=== PATIENT | female | born 1995 | race Caucasian/White ===

== ENCOUNTER 2024-05-07 21:55 | Emergency (ER) | payer SELFPAY ==
--- NOTE | 2024-05-07 22:12 | PC.NURSE ---
no answer in lobby when called for vital signs
--- NOTE | 2024-05-07 22:29 | PC.NURSE ---
no answer in lobby when called for vital signs
--- NOTE | 2024-05-07 22:49 | PC.NURSE ---
NO ANSWER FOR MAIN ED
== END 2024-05-07 22:52 | disposition left against medical advice (07) ==
LOC: SERX 23:44
PROVIDERS: Emergency Provider Emergency Medicine
DX: Z53.21 Procedure and treatment not carried out due to patient leaving prior to being seen by health care provider (principal)

== ENCOUNTER → 2024-05-20 | Outpatient (CLI) | payer BC, SELFPAY ==
--- NOTE | 2024-05-20 13:30 | XR_ITS ---
Examination: Pelvic ultrasound, transabdominal, complete Technique: Transabdominal ultrasound of the pelvis performed using grayscale imaging Date and time of exam: May 20 2024 1431 hours INDICATIONS: Pelvic pain and heavy vaginal bleeding 3 months FINDINGS: Uterus 8.6 x 3.6 x 6.2 cm Endometrial stripe 21 mm No uterine mass or intrauterine gestation Right ovary 3.4 cm arterial flow Left ovary 4.1 cm arterial flow Mild fluid in the cul-de-sac IMPRESSION: Mildly prominent left ovary 4.1 x 2.5 x 3.8 cm, recommend six-month pelvic sonography follow-up
--- NOTE | 2024-05-20 13:30 | XR_ITS ---
Examination: Transvaginal ultrasound of the pelvis, complete Technique: Transvaginal sonographic images pelvis performed using godinez scale imaging Exam date and time: May 20, 2024 1442 hours INDICATIONS: Pelvic pain and irregular heavy vaginal bleeding 3 months FINDINGS: Uterus 9.2 x 3.9 x 5.3 cm Anterior uterine body area of fibroid degeneration 11 x 10 mm posterior uterine body area of fibroid degeneration 10 x 10 mm Endometrial stripe 14 mm Right ovary 2.7 x 2.2 x 2.1 cm arterial flow Left ovary 3.9 x 2.2 x 3.0 cm arterial flow small follicles IMPRESSION: Small areas of uterine fibroid degeneration as above Mildly prominent left ovary, recommend 3-6 month follow-up pelvic sonography.
== END | disposition home or self-care (01) ==
PROVIDERS: PCP Physician Assistant; Referring Provider Physician Assistant; Visit Provider Physician Assistant
DX: D25.9 Leiomyoma of uterus, unspecified (principal); N83.8 Other noninflammatory disorders of ovary, fallopian tube and broad ligament
CPT/HCPCS: 76830; 76856

== ENCOUNTER 2024-07-01 14:54 | Outpatient (AMB) | payer BC, MEDICAID, SELFPAY ==
[2024-07-01 15:11] VITALS: BP 135/76; PULSE 80; RESP 16; TEMP 35.7; O2SAT 98; BMI 32.8
--- NOTE | 2024-07-01 15:11 | OBCLNT_ITS ---
Vital Signs 07/01/24 15:11 Height 1.7 m Height Method Stated Weight 95.254 kg Weight Measurement Method Standing Scale BMI 32.8 BP 135/76 H Blood Pressure Source Automatic Cuff Blood Pressure Location Left Upper Arm Position Sitting Respiration 16 Pulse 80 Pulse Source Monitor Temp 96.3 F L Temp Source Oral Pulse Oximetry (%) 98 Oxygen Delivery Method Room Air Allergies/Home Meds Allergies & Medications Allergies No Known Allergies Allergy (Verified 07/01/24 15:13) Medication Reconciliation No Known Home Medications 07/01/24 [History Confirmed 07/01/24] Intake Visit Data Collection New Patient or Established: Established Patient (seen at [facility] within 3 years) Reason for Visit:: Initial OB Visit Seen by Clinical Staff ONLY (RN/MA): No Coal 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 1. Little interest or pleasure in doing things: not at all 2. Feeling down, depressed, or hopeless: not at all Total score: 0 Depression screen completed yes Social History Living Situation History Marital Status: Lives With: Family Housing: House Housing Other:: Works at [employer]. Spouse is a dural mechanic. 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: Yes Past Medical History Past Medical History Have you ever been diagnosed with any of the following: Neurological Problems Seizures: No Epilepsy: No Migraine: No Cardiology Problems Cardiac Arrhythmia: No Heart Murmur: No Respiratory Problems Asthma: No Pulmonary Embolism: No Sleep Apnea: No Stomache/Intestinal Problems Celiac Disease: No Gall Bladder Disease: Yes (Status post laparoscopic cholecystectomy 2020) Irritable Bowel: No Obesity: Yes (Was on Zepbound before . Went from 250 pounds down to 188 pounds.) Genital/Urinary Problems Renal Disease: No Reproductive Problems Endometriosis: No Fibroids: Yes (Small fibroids) Genital Herpes: No Gonorrhea: No Pelvic Inflammatory Disease: No Polycystic Ovarian Syndrome: No Previous Pregnancies: Yes (Status post vaginal delivery in 2020 Dr. Del Castillo) Musculoskeletal Problems Arthritis: No Rheumatoid Arthritis: No Scoliosis: No Fibromyalgia: No Head,Eye,Nose,Throat Problems Glaucoma: No Endocrine Problems Diabetes Mellitus Type 2: No Hyperthyroidism: No Hypothyroidism: No Systemic Lupus Erythematosus: No Blood Problems Anemia: No Psychologic Problems Recreational Drug Use: Yes (History of marijuana use prior to ) Depression: No Anxiety: No Other Problems Hospitalization: Yes (For lap choley and vaginal delivery x 1) Blood Transfusions: No Anesthesia Reactions: No Surgical History Bariatric Surgery: No Cholecystectomy: Yes (Laparoscopic in 2020) History of Present Illness HPI Narrative Patient is a 29-year-old -0-1-1 presents for a new OB appointment. She has no complaints. No bleeding and no contractions. She was told in the past by a PA on a transvaginal ultrasound she is 1 cm fibroid. Patient had a vaginal delivery in 2020 at 37 weeks baby weighed 6 pound. She was induced 3 weeks early for elevated blood pressure. Her daughter Shobha was born weighing [address] Del Castillo delivered her. Per patient she had a vacuum delivery. She did have an epidural. She states her blood type is O-. OB Initial Visit Menstrual History Menstrual reliability: definite Flow: normal Menstrual regularity: regular Monthly: Yes Age at menarche: 13 On control pills at conception: No Date of positive home test: 06/03/24 Associated symptoms (LMP): Reports fatigue and breast tenderness OB History : 3 Para: 1 Hx Total # of Abortions (Spontaneous & Elective): 1 # of Living Children: 1 Delivery History 1st : Child's name: SHOBHA date: 12/11/20 sex: female Gestational age at delivery (weeks): 37 Delivery type: vaginal weight (lbs): 2721.554 g Delivery complications: IOL for HTN at 37 weeks, vacuum delivery. Had epidural. History of depression before or after : No Additional comments: Blood type O- per patient. False positive NIPT last time followed at [facility] Infection History & Risk Evaluation History of STDs: none HIV risk evaluation: low risk Hepatitis B risk evaluation: low risk Patient or partner has history of Genital Herpes: No Varicella/chicken pox status: immunized Genetic Screening & History Genetic Screening/Teratology Counseling - Includes patient, baby's father, or anyone in either family with: 1. Patient's age 35 years or older as of estimated date of delivery: No 2. Thalassemia (Malay, Lithuanian, Mediterranean, or Background); MCV less than 80: No 3. Neural Tube Defect (Meningomyelocele, Spina Bifida, or Anencephaly): No 4. Congenital Heart Defect: No 5. Down Syndrome: No 6. Andres-Sachs (Ashkenazi Advent, Cajun, Vietnamese Addison): No 7. Kirby Disease (Ashkenazi Advent): No 8. Familial Dysautonomia (Ashkenazi Advent): No 9. Sickle Cell Disease or Trait (): No 10. Hemophilia or other blood disorders: No 11. Muscular Dystrophy: No 12. Cystic Fibrosis: No 13. [place]'s Chorea: No 14. Mental Retardation/Autism: No 15. Other inherited genetic or chromosomal disorder: No 16. Maternal Metabolic Disorder (EG,TYPE 1 Diabetes, PKU): No 17. Patient or baby's father had a child with defects not listed above: No 18. Recurrent loss or a stillbirth: No 19. Medications (including supplements, vitamins, herbs or otc drugs)/illicit/recreational drugs/alcohol since last menstrual period: No 20. Any other: No Infection History 1. Live with someone with TB or exposed to TB: No 2. Rash or viral illness since last menstrual period: No 3. Hepatitis B,C: No Other (see comments) Source: [employer] OB Flowsheet OB Flowsheet Initial Weight: Not Recorded Date -?-?-?-?-?-?-?-?-?-?-?-?- EGA Weight Edema CTX Effacement BP Fundal ht Pres Dilation Effacement Station Visit Note Alb Glu FHR Mov 07/01/24 -?-?-?-?-?-?-?-?-?-?-?-?- 8w 4d 95.254 kg 135/76 135 Review of Systems Review of Systems Narrative Review of Systems: Patient reports fatigue and breast tenderness no severe nausea and vomiting no bleeding. Systems Reviewed: All systems reviewed, normal except as documented Constitutional Constitutional: Reports fatigue Endocrine Endocrine: Reports fatigue Exam General General Appearance: alert, in no apparent distress, comfortable, cooperative and well groomed Neck Neck exam: Present normal inspection, full ROM and trachea midline Chest Chest inspection: Present normal inspection and symmetric chest wall rise Resp Respiratory exam: Present normal lung sounds bilaterally Card Cardiovascular exam: Present regular rate, normal rhythm and normal heart sounds Abdominal Abdominal exam: Present soft and normal bowel sounds Extremities Extremities exam: Present normal inspection and full ROM Psych Psychiatric exam: Present normal affect and normal mood Skin Skin exam: Present warm, dry, intact and normal color Assessment & Plan Diagnosis / Problem List (1) : Status: Acute Qualifiers: Weeks of gestation: 8 weeks Qualified Code(s): Z3A.08 - 8 weeks gestation of Additional Plan Follow Up: 4 Weeks Office Procedures OB Clinic LOC & Office Proc's Nursing/Assessment Patient Status: Established Patient OB Clinic Nursing Assessment: BP Monitoring, Medication Reconciliation, Update PMH in EMR and Vital Signs OB Clinic Coordination of Care: Consent,records obtained, informed consent, Education Simp Pt/Fam, Lab and Imaging orders and Staff clarify orders Special Needs: Heart tones Established Patient Charge Established Patient Point Assignment: 120 Established Patient Point Charge: EP Level 4 (120-155) Bedside Ultrasounds US Transvaginal at bedside: Yes OB Ultrasound Indication Indication: Size, dates, viability OB Ultrasound Ultrasound technique: transvaginal Gestational sac assessment: Presence, location, size, shape: Intrauterine with a crown-rump length of 1.99 cm. Corresponding gestational age of 8 weeks 4 days. Embryo/ Assessment 1: Cardiac activity confirmation: Yes
== END 2024-07-01 15:54 | disposition home or self-care (01) ==
LOC: HODSOBC 14:54
PROVIDERS: Supervising Provider Obstetrics & Gynecology; Visit Provider Obstetrics & Gynecology
DX: Z34.81 Encounter for supervision of other normal pregnancy, first trimester (principal); Z3A.08 8 weeks gestation of pregnancy
CPT/HCPCS: 76817; 99214; G0463

== ENCOUNTER → 2024-07-01 | Outpatient (CLI) | payer BC, SELFPAY ==
[2024-07-01 18:23] LABS: HCG Qualitative,Urine Positive
[2024-07-01 18:24] LABS: Hepatitis B Surface Antigen Non Reactive (Non React); Rubella, IgG Antibody Reactive (Immune)
[2024-07-01 18:28] LABS: Syphilis Nonreactive (Nonreactive)
[2024-07-01 18:35] LABS: HIV (1&2) Antibody Rapid Non-Reactive
== END | disposition home or self-care (01) ==
PROVIDERS: PCP Physician Assistant; Referring Provider Obstetrics & Gynecology; Visit Provider Obstetrics & Gynecology
DX: Z34.90 Encounter for supervision of normal pregnancy, unspecified, unspecified trimester (principal)
CPT/HCPCS: 36415; 81025; 86703; 86762; 86780; 86850; 86900; 86901; 87340

== ENCOUNTER 2024-08-06 08:31 | Outpatient (AMB) | payer BC, MEDICAID, SELFPAY ==
[2024-08-06 08:42] VITALS: BP 132/78; PULSE 98; RESP 18; TEMP 36.2; O2SAT 98; BMI 33.5
--- NOTE | 2024-08-06 08:42 | OBCLNT_ITS ---
Vital Signs 08/06/24 08:42 Height 1.7 m Height Method Stated Weight 97.125 kg Weight Measurement Method Standing Scale BMI 33.5 BP 132/78 H Blood Pressure Source Automatic Cuff Blood Pressure Location Left Upper Arm Position Sitting Respiration 18 Pulse 98 Pulse Source Monitor Temp 97.2 F Temp Source Oral Pulse Oximetry (%) 98 Oxygen Delivery Method Room Air Allergies/Home Meds Allergies & Medications Allergies No Known Allergies Allergy (Verified 08/06/24 08:44) Medication Reconciliation No Known Home Medications 07/01/24 [History Confirmed 08/06/24] Intake Visit Data Collection New Patient or Established: Established Patient (seen at [facility] within 3 years) Reason for Visit:: 13 week OB visit Seen by Clinical Staff ONLY (RN/MA): No Sprinkler Repair Technician Required: No Do You Feel Safe at Home: Yes Authorities Contacted: N/A PCP or OBGYN visit in last 3 months: Yes Date of Last PCP or OBGYN visit: 07/01/24 Hx Now: Yes Are you currently on any form of Control: No Pain Present Currently: No Pain Scale Used: Hahn-Magana/Numerical Pain scale:: 0 Smoking Status Smoking Status: Former smoker Questionnaires Covid-19 Vaccine Questionnaire Has patient been vacinated for Covid-19 Have you been vacinated for Covid-19: Yes PHQ-9 PHQ-2 Over the last 2 weeks, how often have you been bothered by any of the following problems? 1. Little interest or pleasure in doing things: not at all 2. Feeling down, depressed, or hopeless: not at all Total score: 0 PHQ-9 3. Trouble falling or staying asleep, or sleeping too much: Not at all 4. Feeling tired or having little energy: Not at all 5. Poor appetite or overeating: Not at all 6. Feeling bad about yourself - or that you are a failure or have let yourself or your family down: Not at all 7. Trouble concentrating on things, such as reading the newspaper or watching television: Not at all 8. Moving or speaking so slowly that other people could have noticed? - Or the opposite - being so fidgety or restless that you have been moving around a lot more than usual: not at all 9. Thoughts that you would be better off or of hurting yourself in some way: Not at all Total score: 0 If you checked off any problems, how difficult have these problems made it for you to do your work, take care of things at home, or get along with other people?: not difficult at all Source: Developed by Drs. Gurjit Bennett, Lis Arvizu, Armaan De Souza and colleagues, with an educational korey from [employer]. Depression screen completed yes Social History Living Situation History Marital Status: Lives With: Family Housing: House Housing Other:: Works at [employer]. Spouse is a supervisor mechanic boilermaking. 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: Yes Past Medical History Past Medical History Have you ever been diagnosed with any of the following: Neurological Problems Seizures: No Epilepsy: No Migraine: No Cardiology Problems Cardiac Arrhythmia: No Heart Murmur: No Congestive Heart Failure: No Respiratory Problems Chronic Obstructive Pulmonary Disease (COPD): No Asthma: No Pulmonary Embolism: No Sleep Apnea: No Stomache/Intestinal Problems Celiac Disease: No Gall Bladder Disease: Yes (Status post laparoscopic cholecystectomy 2020) Irritable Bowel: No Obesity: Yes (Was on Zepbound before . Went from 250 pounds down to 188 pounds.) Genital/Urinary Problems Renal Disease: No Reproductive Problems Endometriosis: No Fibroids: Yes (Small fibroids) Genital Herpes: No Gonorrhea: No Pelvic Inflammatory Disease: No Polycystic Ovarian Syndrome: No Previous Pregnancies: Yes (Status post vaginal delivery in 2020 Dr. Del Castillo) Musculoskeletal Problems Arthritis: No Rheumatoid Arthritis: No Scoliosis: No Fibromyalgia: No Head,Eye,Nose,Throat Problems Glaucoma: No Endocrine Problems Diabetes Mellitus Type 1: No Diabetes Mellitus Type 2: No Hypoglycemia: No Hyperthyroidism: No Hypothyroidism: No Parathyroid Disease: No Pituitary Disease: No Systemic Lupus Erythematosus: No Syndrome of Inappropriate Antidiuretic Hormone: No Graves' Disease: No Blood Problems Anemia: No Psychologic Problems Recreational Drug Use: Yes (History of marijuana use prior to ) Depression: No Anxiety: No Other Problems Hospitalization: Yes (For lap choley and vaginal delivery x 1) Down Syndrome: No Developmental Delay: No Shingles: No Falls: No Blood Transfusions: No Anesthesia Reactions: No MRSA: No Clostridium Difficile: No Cancer: No Surgical History Bariatric Surgery: No Cholecystectomy: Yes (Laparoscopic in 2020) OB Ultrasound Indication Indication: size/dates OB Ultrasound Ultrasound technique: transabdominal Gestational sac assessment: Presence, location, size, shape: Live IUP CRL 8 cm 14 0/7 weeks EDC10 Visit OB Visit Log OB Flowsheet Initial Weight: Not Recorded Date -?-?-?-?-?-?-?-?-?-?-?-?- EGA Weight Edema CTX Effacement BP Fundal ht Pres Dilation Effacement Station Visit Note Alb Glu FHR Mov 07/01/24 -?-?-?-?-?-?-?-?-?-?-?-?- 8w 4d 95.254 kg 135/76 135 08/06/24 -?-?-?-?-?-?-?-?-?-?-?-?- 13w 5d 97.125 kg 132/78 14 L abs reviewed all questions answered. Urine dip glucose negative protein trace. Patient declines NIPT. She feels a little tired and has some round ligament pain but otherwise no complaints. No bleeding no contractions no loss of fluids. 147 MARIBEL Calculator Estimated Delivery Date Method Current WG Current Estimate 02/06/25 Ultrasound #1 13w 5d Other Estimates 02/08/25 LMP (Certain) 13w 3d Comments: labs : (07/01/24 [facility] discussed she may have she just needs met she just needs medications perfect)blood type O- /antibody screen negative/ rubella immune/ RPR nonreactive/ HIV negative/ hepatitis B surface antigen negative/ NIPT declined. Expected Delivery Route/Plan Anticipate . Patient desires epidural. Specific Issue/Plans Vacuum-assisted vaginal delivery last delivery. O- blood type. Notes Visit Date: 08/06/24 Last Updated by: Darby Peacock (OB Clinic)MD Patient declines NIPT. She had a vacuum delivery with her daughter with Dr. Del Castillo. She had an epidural. She states she pushed a long time. The baby was in the 6 pound range. Assessment & Plan Diagnosis / Problem List (1) : Status: Acute Qualifiers: Weeks of gestation: 8 weeks Qualified Code(s): Z3A.08 - 8 weeks gestation of Assessment and Plan: NEEDS CBC/UA/CX and culture.GC/Chlam next vist. NEED STRUCTURAL SURVEY NEXT VISIT Office Procedures OB Clinic LOC & Office Proc's Nursing/Assessment Patient Status: Established Patient OB Clinic Nursing Assessment: BP Monitoring, Medication Reconciliation, Update PMH in EMR and Vital Signs OB Clinic Coordination of Care: Consent,records obtained, informed consent, Education Simp Pt/Fam, Lab and Imaging orders and Staff clarify orders Special Needs: Heart tones Established Patient Charge Established Patient Point Assignment: 120 Established Patient Point Charge: EP Level 4 (120-155)
== END 2024-08-06 09:06 | disposition home or self-care (01) ==
LOC: HODSOBC 08:31
PROVIDERS: Supervising Provider Obstetrics & Gynecology; Visit Provider Obstetrics & Gynecology
DX: O99.891 Other specified diseases and conditions complicating pregnancy (principal); R10.2 Pelvic and perineal pain; O99.211 Obesity complicating pregnancy, first trimester; Z3A.13 13 weeks gestation of pregnancy; Z87.891 Personal history of nicotine dependence; Z90.49 Acquired absence of other specified parts of digestive tract
CPT/HCPCS: 99214; G0463

== ENCOUNTER 2024-08-27 13:30 | Outpatient (AMB) | payer BC, SELFPAY ==
[2024-08-27 13:42] VITALS: BP 138/81; PULSE 91; RESP 18; TEMP 36.8; O2SAT 98; BMI 34.9
--- NOTE | 2024-08-27 13:42 | OBCLNT_ITS ---
Vital Signs 08/27/24 13:42 Height 1.7 m Height Method Stated Weight 100.868 kg Weight Measurement Method Standing Scale BMI 34.9 BP 138/81 H Blood Pressure Source Automatic Cuff Blood Pressure Location Right Upper Arm Position Sitting Respiration 18 Pulse 91 Pulse Source Monitor Temp 98.3 F Temp Source Oral Pulse Oximetry (%) 98 Oxygen Delivery Method Room Air Allergies/Home Meds Allergies & Medications Allergies No Known Allergies Allergy (Verified 08/27/24 13:43) Medication Reconciliation No Known Home Medications 07/01/24 [History Confirmed 08/27/24] Intake Visit Data Collection New Patient or Established: Established Patient (seen at [facility] within 3 years) Reason for Visit:: CARE Seen by Clinical Staff ONLY (RN/MA): No Central Supply Technician Required: No Do You Feel Safe at Home: Yes Authorities Contacted: N/A PCP or OBGYN visit in last 3 months: Yes Hx Now: Yes Are you currently on any form of Control: No Pain Present Currently: No Pain Scale Used: Hahn-Magana/Numerical Pain scale:: 0 Smoking Status Smoking Status: Former smoker Questionnaires Covid-19 Vaccine Questionnaire Has patient been vacinated for Covid-19 Have you been vacinated for Covid-19: No PHQ-9 PHQ-2 Over the last 2 weeks, how often have you been bothered by any of the following problems? 1. Little interest or pleasure in doing things: not at all 2. Feeling down, depressed, or hopeless: not at all Total score: 0 PHQ-9 3. Trouble falling or staying asleep, or sleeping too much: Not at all 4. Feeling tired or having little energy: Not at all 5. Poor appetite or overeating: Not at all 6. Feeling bad about yourself - or that you are a failure or have let yourself or your family down: Not at all 7. Trouble concentrating on things, such as reading the newspaper or watching television: Not at all 8. Moving or speaking so slowly that other people could have noticed? - Or the opposite - being so fidgety or restless that you have been moving around a lot more than usual: not at all 9. Thoughts that you would be better off or of hurting yourself in some way: Not at all Total score: 0 Source: Developed by Lis Guerrero B.W. Nolberto, Armaan De Souza and colleagues, with an educational korey from [employer] Depression screen completed yes Social History Living Situation History Lives With: Family Housing: House Housing Other:: Works at [employer]. Spouse is a journeyman mechanic. 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 Past Medical History: No Hx Neurological Disorders, No Hx Hypothyroidism, No Hx Hyperthyroidism, No Hx Cardiac Disorders, No Hx Cancer, No Hx Blood Disorders, No Hx Anemia, No Hx Gastrointestinal Disorders, No Hx Renal Disease, No Hx Diabetes Mellitus Type 1, No Hx Diabetes Mellitus Type 2 and No Hx Polycystic Ovarian Syndrome Care OB Visit Log OB Flowsheet Initial Weight: Not Recorded Date -?-?-?-?-?-?-?-?-?-?-?-?- EGA Weight Edema CTX Effacement BP Fundal ht Pres Dilation Effacement Station Visit Note Alb Glu FHR Mov 07/01/24 -?-?-?-?-?-?-?-?-?-?-?-?- 8w 4d 95.254 kg 135/76 135 08/06/24 -?-?-?-?-?-?-?-?-?-?-?-?- 13w 5d 97.125 kg 132/78 14 L abs reviewed all questions answered. Urine dip glucose negative protein trace. Patient declines NIPT. She feels a little tired and has some round ligament pain but otherwise no complaints. No bleeding no contractions no loss of fluids. 147 08/27/24 -?-?-?-?-?-?-?-?-?-?-?-?- 16w 5d 100.868 kg 138/81 16 declined NIPT 154 active MARIBEL Calculator Estimated Delivery Date Method Current WG Current Estimate 02/06/25 Ultrasound #1 16w 5d Other Estimates 02/08/25 LMP (Certain) 16w 3d Comments: O-/Antibody negative/HIV-/HepBSag-/Rubella Immune/RPR NR Need Urine cx/ Gc/Chlamydia Expected Delivery Route/Plan Anticipate . Patient desires epidural. Specific Issue/Plans Vacuum-assisted vaginal delivery last delivery. O- blood type. Notes Visit Date: 08/27/24 Last Updated by: Darby Peacock (OB Clinic)MD Pt is very tired. Ordered CBC, B12, TSH. 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 Visit Date: 08/06/24 Last Updated by: Darby Peacock (OB Clinic)MD Patient declines NIPT. She had a vacuum delivery with her daughter with Dr. Del Castillo. She had an epidural. She states she pushed a long time. The baby was in the 6 pound range. Office Procedures OB Clinic LOC & Office Proc's Nursing/Assessment Patient Status: Established Patient OB Clinic Nursing Assessment: Medication Reconciliation, Update PMH in EMR and Vital Signs OB Clinic Coordination of Care: Complex Care and Chronic Disease 1-5, Consent,records obtained, informed consent, Education Simp Pt/Fam, Lab and Imaging orders, Results/Orders obtained and Staff clarify orders Special Needs: Heart tones Established Patient Charge Established Patient Point Assignment: 135 Established Patient Point Charge: EP Level 4 (120-155) Assessment & Plan Diagnosis / Problem List (1) : Status: Acute Qualifiers: Weeks of gestation: 8 weeks Qualified Code(s): Z3A.08 - 8 weeks gestation of (2) Fatigue: Status: Acute Qualifiers: Fatigue type: -related Trimester: third trimester Qualified Code(s): O26.813 - related exhaustion and fatigue, third trimester
== END 2024-08-27 14:44 | disposition home or self-care (01) ==
LOC: HODSOBC 13:30
PROVIDERS: Supervising Provider Obstetrics & Gynecology; Visit Provider Obstetrics & Gynecology
DX: O26.812 Pregnancy related exhaustion and fatigue, second trimester (principal); Z3A.16 16 weeks gestation of pregnancy; Z87.891 Personal history of nicotine dependence
CPT/HCPCS: 99214; G0463

== ENCOUNTER → 2024-08-27 | Outpatient (CLI) | payer BC, SELFPAY ==
[2024-08-27 16:47] LABS: Basophils # (Auto) 0.1 Thou/mm3 (0.0-0.2); Basophils % (Auto) 0 % (0-2.5); Eosinophils # (Auto) 0.3 Thou/mm3 (0.0-0.5); Eosinophils % (Auto) 2 % (0-10); Hematocrit 36.5 % (36.0-46.0); Hemoglobin 12.5 g/dL (12.0-16.0); Immature Granulocytes % (Auto) 1 % (0-0); Immature Granulocytes Auto 0.13 Thou/mm3 (0.00-0.00); Lymphocytes # (Auto) 2.9 Thou/mm3 (1.0-4.8); Lymphocytes % (Auto) 20 % (10-50); Mean Corpuscular HGB Conc 34.2 g/dl (31.0-37.0); Mean Corpuscular Hemoglobin 29.8 pg (25.0-35.0); Mean Corpuscular Volume 87 fL (80-100); Monocytes # (Auto) 0.6 Thou/mm3 (0.0-0.8); Monocytes % (Auto) 4 % (0-12); Neutrophils # (Auto) 10.4 Thou/mm3 (1.8-7.7); Neutrophils % (Auto) 73 % (37-80); Nucleated Red Blood Cell % 0 /100 WBC (0); Platelet Count 265 Thou/mm3 (140-440); RDW Standard Deviation 41.5 fL (36.4-46.3); Red Blood Count 4.19 Miln/mm3 (4.00-5.20); White Blood Count 14.3 Thou/mm3 (3.6-11.0)
[2024-08-27 16:57] LABS: Glucose Estimated Average 97 mg/dL (80-131)
[2024-08-27 17:02] LABS: Thyroid Stimulating Hormone 1.62 uIU/mL (0.55-4.78); Vitamin B12 302 pg/mL (211-911)
== END | disposition home or self-care (01) ==
LOC: COPL 15:04
PROVIDERS: Referring Provider Obstetrics & Gynecology; Visit Provider Obstetrics & Gynecology
DX: O26.813 Pregnancy related exhaustion and fatigue, third trimester (principal)
CPT/HCPCS: 36415; 82607; 83036; 84443; 85025

== ENCOUNTER 2024-09-03 14:20 | Outpatient (AMB) | payer BC, MEDICAID, SELFPAY ==
[2024-09-03 14:31] VITALS: BP 139/76; PULSE 92; RESP 18; TEMP 36.8; O2SAT 97; BMI 35.5
--- NOTE | 2024-09-03 14:31 | OBCLNT_ITS ---
Vital Signs 09/03/24 14:31 Height 1.7 m Height Method Stated Weight 102.739 kg Weight Measurement Method Standing Scale BMI 35.5 BP 139/76 H Blood Pressure Source Automatic Cuff Blood Pressure Location Right Upper Arm Position Sitting Respiration 18 Pulse 92 Pulse Source Monitor Temp 98.3 F Temp Source Oral Pulse Oximetry (%) 97 Oxygen Delivery Method Room Air Allergies/Home Meds Allergies & Medications Allergies No Known Allergies Allergy (Verified 09/03/24 14:32) Medication Reconciliation No Known Home Medications 07/01/24 [History Confirmed 09/03/24] Intake Visit Data Collection New Patient or Established: Established Patient (seen at [facility] within 3 years) Reason for Visit:: CARE/LAB RESULTS Seen by Clinical Staff ONLY (RN/MA): No Night Clerk Required: No Do You Feel Safe at Home: Yes Authorities Contacted: N/A PCP or OBGYN visit in last 3 months: Yes Hx Now: Yes Are you currently on any form of Control: No Pain Present Currently: No Pain Scale Used: Hahn-Magana/Numerical Pain scale:: 0 Smoking Status Smoking Status: Former smoker Questionnaires Covid-19 Vaccine Questionnaire Has patient been vacinated for Covid-19 Have you been vacinated for Covid-19: Yes PHQ-9 PHQ-2 Over the last 2 weeks, how often have you been bothered by any of the following problems? 1. Little interest or pleasure in doing things: not at all 2. Feeling down, depressed, or hopeless: not at all Total score: 0 PHQ-9 3. Trouble falling or staying asleep, or sleeping too much: Not at all 4. Feeling tired or having little energy: Not at all 5. Poor appetite or overeating: Not at all 6. Feeling bad about yourself - or that you are a failure or have let yourself or your family down: Not at all 7. Trouble concentrating on things, such as reading the newspaper or watching television: Not at all 8. Moving or speaking so slowly that other people could have noticed? - Or the opposite - being so fidgety or restless that you have been moving around a lot more than usual: not at all 9. Thoughts that you would be better off or of hurting yourself in some way: Not at all Total score: 0 Source: Developed by Drs. Gurjit Bennett, Lis Arvizu, Armaan De Souza and colleagues, with an educational korey from [employer]. Depression screen completed yes Social History Living Situation History Lives With: Family Housing: House Housing Other:: Works at [employer]. Spouse is a aircraft mechanic structures. 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 Past Medical History: No Hx Neurological Disorders, No Hx Hypothyroidism, No Hx Hyperthyroidism, No Hx Cardiac Disorders, No Hx Cancer, No Hx Blood Disorders, No Hx Anemia, No Hx Gastrointestinal Disorders, No Hx Renal Disease, No Hx Diabetes Mellitus Type 1, No Hx Diabetes Mellitus Type 2 and No Hx Polycystic Ovarian Syndrome Care OB Visit Log OB Flowsheet Initial Weight: Not Recorded Date -?-?-?-?-?-?-?-?-?-?-?-?- EGA Weight BP Alb Glu CTX Pres Fundal ht FHR Mov Dilation Station Effacement Hx Notes Visit Note 07/01/24 -?-?-?-?-?-?-?-?-?-?-?-?- 8w 4d 95.254 kg 135/76 135 08/06/24 -?-?-?-?-?-?-?-?-?-?-?-?- 13w 5d 97.125 kg 132/78 14 147 Labs reviewed all questions answered. Urine dip glucose negative protein trace. Patient declines NIPT. She feels a little tired and has some round ligament pain but otherwise no complaints. No bleeding no contractions no loss of fluids. 08/27/24 -?-?-?-?-?-?-?-?-?-?-?-?- 16w 5d 100.868 kg 138/81 16 154 active declined NIPT 09/03/24 -?-?-?-?-?-?-?-?-?-?-?-?- 17w 5d 102.739 kg 139/76 137 active Had structural survey ultrasound today. Trying to work overtime. Discussed need for 8 hours of sleep. CBC thyroid B12 all normal. Patient reports good movement no contractions no loss of fluids no MARIBEL Calculator Estimated Delivery Date Method Current WG Current Estimate 02/06/25 Ultrasound #1 17w 5d Other Estimates 02/08/25 LMP (Certain) 17w 3d Comments: O negative\antibody screen negative\rubella immune\RPR nonreactive\HIV negative\H hepatitis B surface antigen negative Expected Delivery Route/Plan Anticipate . Patient desires epidural. Specific Issue/Plans Vacuum-assisted vaginal delivery last delivery. O- blood type. Notes Visit Date: 08/27/24 Last Updated by: Darby Peacock (OB Clinic)MD Pt is very tired. Ordered CBC, B12, TSH. 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 Visit Date: 08/06/24 Last Updated by: Darby Peacock (OB Clinic)MD Patient declines NIPT. She had a vacuum delivery with her daughter with Dr. Del Castillo. She had an epidural. She states she pushed a long time. The baby was in the 6 pound range. Office Procedures OB Clinic LOC & Office Proc's Nursing/Assessment Patient Status: Established Patient OB Clinic Nursing Assessment: Medication Reconciliation, Update PMH in EMR and Vital Signs OB Clinic Coordination of Care: Complex Care and Chronic Disease 1-5, Consent,records obtained, informed consent, Education Simp Pt/Fam, Results/Orders obtained and Staff clarify orders Special Needs: Heart tones Established Patient Charge Established Patient Point Assignment: 120 Established Patient Point Charge: EP Level 4 (120-155)
== END 2024-09-03 15:35 | disposition home or self-care (01) ==
LOC: HODSOBC 14:20
PROVIDERS: Supervising Provider Obstetrics & Gynecology; Visit Provider Obstetrics & Gynecology
DX: Z34.82 Encounter for supervision of other normal pregnancy, second trimester (principal); Z3A.17 17 weeks gestation of pregnancy; Z87.891 Personal history of nicotine dependence
CPT/HCPCS: 99214; G0463

== ENCOUNTER 2024-09-24 13:52 | Outpatient (AMB) | payer BC, SELFPAY ==
[2024-09-24 14:22] VITALS: BP 128/82; PULSE 81; RESP 20; TEMP 36.8; O2SAT 98; BMI 36.4
--- NOTE | 2024-09-24 14:22 | AMB.OBVISIT ---
Vital Signs 09/24/24 14:22 Height 1.7 m Height Method Measured Weight 105.404 kg Weight Measurement Method Standing Scale BMI 36.4 BP 128/82 Blood Pressure Source Automatic Cuff Blood Pressure Location Right Upper Arm Position Sitting Respiration 20 Pulse 81 Pulse Source Monitor Temp 98.2 F Temp Source Temporal Artery Scan Pulse Oximetry (%) 98 Oxygen Delivery Method Room Air Allergies/Home Meds Allergies & Medications Allergies No Known Allergies Allergy (Verified 09/03/24 14:32) Intake Visit Data Collection New Patient or Established: Established Patient (seen at [facility] within 3 years) Reason for Visit:: FOLLOW UP OB 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 1. Little interest or pleasure in doing things: not at all PHQ-9 8. Moving or speaking so slowly that other people could have noticed? - Or the opposite - being so fidgety or restless that you have been moving around a lot more than usual: not at all Source: Developed by Drs. Gurjit Bennett, Lis Arvizu, Armaan De Souza and colleagues, with an educational korey from [employer]. Social History Living Situation History Lives With: Family Housing: House Housing Other:: Works at [employer]. Spouse is a mechanic foreman. 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: Past Medical History Past Medical History: No Hx Neurological Disorders, No Hx Hypothyroidism, No Hx Hyperthyroidism, No Hx Cardiac Disorders, No Hx Cancer, No Hx Blood Disorders, No Hx Anemia, No Hx Gastrointestinal Disorders, No Hx Renal Disease, No Hx Diabetes Mellitus Type 1, No Hx Diabetes Mellitus Type 2 and No Hx Polycystic Ovarian Syndrome Care OB Visit Log OB Flowsheet Initial Weight: Not Recorded Date <del>?</del> EGA Weight BP Alb Glu CTX Pres Fundal ht FHR Mov Dilation Station Effacement Hx Notes Visit Note 07/01/24 <del>?</del> 8w 4d 95.254 kg 135/76 135 08/06/24 <del>?</del> 13w 5d 97.125 kg 132/78 14 147 Labs reviewed all questions answered. Urine dip glucose negative protein trace. Patient declines NIPT. She feels a little tired and has some round ligament pain but otherwise no complaints. No bleeding no contractions no loss of fluids. 08/27/24 <del>?</del> 16w 5d 100.868 kg 138/81 16 154 active declined NIPT 09/03/24 <del>?</del> 17w 5d 102.739 kg 139/76 137 active Had structural survey ultrasound today. Trying to work overtime. Discussed need for 8 hours of sleep. CBC thyroid B12 all normal. Patient reports good movement no contractions no loss of fluids no 09/24/24 <del>?</del> 20w 5d 105.404 kg 128/82 21 135 active +FM No UC No LOF MARIBEL Calculator Estimated Delivery Date Method Current WG Current Estimate 02/06/25 Ultrasound #1 21w 4d Other Estimates 02/08/25 LMP (Certain) 21w 2d Expected Delivery Route/Plan [facility] O-/Ab screen -/ RPR NR/RI/HepBSag-/HIV-/ Urine CX- Anticipate . Patient desires epidural. Specific Issue/Plans Vacuum-assisted vaginal delivery last delivery. O- blood type. Notes Visit Date: 08/27/24 Last Updated by: Darby Peacock (OB Clinic)MD Pt is very tired. Ordered CBC, B12, TSH. 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 Visit Date: 08/06/24 Last Updated by: Darby Peacock (OB Clinic)MD Patient declines NIPT. She had a vacuum delivery with her daughter with Dr. Del Castillo. She had an epidural. She states she pushed a long time. The baby was in the 6 pound range. Office Procedures OB Clinic LOC & Office Proc's Nursing/Assessment Patient Status: Established Patient OB Clinic Nursing Assessment: BP Monitoring, Medication Reconciliation, Update PMH in EMR and Vital Signs OB Clinic Coordination of Care: Complex Care and Chronic Disease 1-5, Consent,records obtained, informed consent, Lab and Imaging orders and Results/Orders obtained Special Needs: Heart tones Established Patient Charge Established Patient Point Assignment: 125 Established Patient Point Charge: EP Level 4 (120-155) Assessment & Plan Diagnosis / Problem List (1) : Status: Acute Qualifiers: Weeks of gestation: 20 weeks Qualified Code(s): Z3A.20 - 20 weeks gestation of (2) Rh negative status during : Status: Acute Qualifiers: Trimester: second trimester Qualified Code(s): O26.892 - Other specified related conditions, second trimester; Z67.91 - Unspecified blood type, Rh negative Assessment and Plan: Need rhogam at 24-28 weeks
== END 2024-09-24 14:54 | disposition home or self-care (01) ==
PROVIDERS: PCP Obstetrics & Gynecology; Referring Provider Obstetrics & Gynecology; Supervising Provider Obstetrics & Gynecology; Visit Provider Obstetrics & Gynecology
DX: Z34.82 Encounter for supervision of other normal pregnancy, second trimester (principal); Z3A.20 20 weeks gestation of pregnancy; Z67.41 Type O blood, Rh negative
CPT/HCPCS: 99214; G0463

== ENCOUNTER 2024-10-13 08:34 | Outpatient (AMB) | payer BC, SELFPAY ==
--- NOTE | 2024-10-13 08:48 | OBCLNT_ITS ---
Vital Signs 10/13/24 08:49 Height 1.7 m Height Method Stated Weight 106.594 kg Weight Measurement Method Standing Scale BMI 36.8 BP 120/81 Blood Pressure Source Automatic Cuff Blood Pressure Location Right Upper Arm Position Sitting Respiration 17 Pulse 85 Pulse Source Monitor Temp 98.3 F Temp Source Temporal Artery Scan Pulse Oximetry (%) 98 Oxygen Delivery Method Room Air Allergies/Home Meds Allergies & Medications Allergies No Known Allergies Allergy (Verified 10/13/24 08:49) Medication Reconciliation escitalopram oxalate 10 mg tablet (Lexapro) 10 mg PO QDAY #60 tabs 10/13/24 [Rx] Intake Visit Data Collection New Patient or Established: Established Patient (seen at [facility] within 3 years) Reason for Visit:: OBC Seen by Clinical Staff ONLY (RN/MA): No 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 1. Little interest or pleasure in doing things: several days 2. Feeling down, depressed, or hopeless: several days Total score: 2 PHQ-9 3. Trouble falling or staying asleep, or sleeping too much: Several days 4. Feeling tired or having little energy: Several days 5. Poor appetite or overeating: Not at all 6. Feeling bad about yourself - or that you are a failure or have let yourself or your family down: Not at all 7. Trouble concentrating on things, such as reading the newspaper or watching television: Not at all 8. Moving or speaking so slowly that other people could have noticed? - Or the opposite - being so fidgety or restless that you have been moving around a lot more than usual: not at all 9. Thoughts that you would be better off or of hurting yourself in some way: Not at all Total score: 4.0 If you checked off any problems, how difficult have these problems made it for you to do your work, take care of things at home, or get along with other people?: not difficult at all Source: Developed by Drs. Gurjit Bennett, Lis Arvizu, Armaan De Souza and colleagues, with an educational korey from [employer]. Depression screen completed yes Social History Living Situation History Marital Status: Life Partner Lives With: Family Housing: House Housing Other:: Works at [employer]. Spouse is a locomotive mechanic. 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 Medical History Past Medical History: No Hx Neurological Disorders, No Hx Hypothyroidism, No Hx Hyperthyroidism, No Hx Cardiac Disorders, No Hx Cancer, No Hx Blood Disorders, No Hx Anemia, No Hx Gastrointestinal Disorders, No Hx Renal Disease, No Hx Diabetes Mellitus Type 1, No Hx Diabetes Mellitus Type 2 and No Hx Polycystic Ovarian Syndrome Care OB Visit Log OB Flowsheet Initial Weight: 97 kg Date -?-?-?-?-?-?-?-?-?-?-?-?- EGA Weight BP Alb Glu CTX Pres Fundal ht FHR Mov Dilation Station Effacement Hx Notes Visit Note 07/01/24 -?-?-?-?-?-?-?-?-?-?-?-?- 8w 4d 95.254 kg (-1745.603 g) 135/76 135 08/06/24 -?-?-?-?-?-?-?-?-?-?-?-?- 13w 5d 97.125 kg (+125.466 g) 132/78 14 147 Labs reviewed all questions answered. Urine dip glucose negative protein trace. Patient declines NIPT. She feels a little tired and has some round ligament pain but otherwise no complaints. No bleeding no contractions no loss of fluids. 08/27/24 -?-?-?-?-?-?-?-?-?-?-?-?- 16w 5d 100.868 kg (+3867.603 g) 138/81 16 154 active declined NIPT 09/03/24 -?-?-?-?-?-?-?-?-?-?-?-?- 17w 5d 102.739 kg (+5738.671 g) 139/76 137 active Had structural survey ultrasound today. Trying to work overtime. Discussed need for 8 hours of sleep. CBC thyroid B12 all normal. Patient reports good movement no contractions no loss of fluids no 09/24/24 -?-?-?-?-?-?-?-?-?-?-?-?- 20w 5d 105.404 kg (+8403.527 g) 128/82 21 135 active +FM No UC No LOF 10/13/24 -?-?-?-?-?-?-?-?-?-?-?-?- 23w 3d 106.594 kg (+9594.206 g) 120/81 24 143 active +FM, No VB or UCs Spouse and 3 y/o daughter present today MARIBEL Calculator Estimated Delivery Date Method Current WG Current Estimate 02/06/25 Ultrasound #1 23w 3d Other Estimates 02/08/25 LMP (Certain) 23w 1d Expected Delivery Route/Plan [facility] O-/Ab screen -/ RPR NR/RI/HepBSag-/HIV-/ Urine CX- Anticipate . Patient desires epidural. Specific Issue/Plans Vacuum-assisted vaginal delivery last delivery. O- blood type. Notes Visit Date: 10/13/24 Last Updated by: Darby Peacock (OB Clinic)MD The patient is crying and quite upset today. She had a panic attack on 10/11/2024 at work. 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 Patient states she is overwhelmed at work. She does not understand why she keeps crying. She states she usually can handle a lot more than this. She is also reporting some right sided carpal tunnel. After her first delivery in [address] Del Castillo she did suffer from with the baby blues but was not on any medication. She states she has not had panic attacks since college. She has never been on antidepressants. She is amendable to trying Lexapro and co unseling. We did discuss the fact that one of her colleagues is going to be off soon on maternity leave and the patient is worried that they will increase her caseload. I told her that she needs to discuss this with her eligibility supervisor that she cannot handle any increased caseload at this point. We can try to send her to physical therapy for her carpal tunnel. If counseling and medication do not work we might consider taking the patient off early on disability. Visit Date: 08/27/24 Last Updated by: Darby Peacock (OB Clinic)MD Pt is very tired. Ordered CBC, B12, TSH. 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 Visit Date: 08/06/24 Last Updated by: Darby Peacock (OB Clinic)MD Patient declines NIPT. She had a vacuum delivery with her daughter with Dr. Del Castillo. She had an epidural. She states she pushed a long time. The baby was in the 6 pound range. Office Procedures OB Clinic LOC & Office Proc's Nursing/Assessment Patient Status: Established Patient OB Clinic Nursing Assessment: Medication Reconciliation, Update PMH in EMR and Vital Signs OB Clinic Coordination of Care: Complex Care and Chronic Disease 1-5, Consent,records obtained, informed consent, Education Simp Pt/Fam and Staff clarify orders Special Needs: Heart tones Established Patient Charge Established Patient Point Assignment: 115 Established Patient Point Charge: EP Level 3 (80-115)
[2024-10-13 08:49] VITALS: BP 120/81; PULSE 85; RESP 17; TEMP 36.8; O2SAT 98; BMI 36.8
== END 2024-10-13 09:24 | disposition home or self-care (01) ==
PROVIDERS: Supervising Provider Obstetrics & Gynecology; Visit Provider Obstetrics & Gynecology
DX: Z34.82 Encounter for supervision of other normal pregnancy, second trimester (principal); Z3A.23 23 weeks gestation of pregnancy; Z87.891 Personal history of nicotine dependence
CPT/HCPCS: 99213; G0463

== ENCOUNTER 2024-10-31 14:21 | Outpatient (AMB) | payer BC, SELFPAY ==
[2024-10-31 14:34] VITALS: BP 135/83; PULSE 94; RESP 18; TEMP 37; O2SAT 96; BMI 38.0
--- NOTE | 2024-10-31 14:34 | OBCLNT_ITS ---
Vital Signs 10/31/24 14:34 Height 1.7 m Height Method Stated Weight 109.826 kg Weight Measurement Method Standing Scale BMI 38.0 BP 135/83 H Blood Pressure Source Automatic Cuff Blood Pressure Location Left Upper Arm Position Sitting Respiration 18 Pulse 94 Pulse Source Monitor Temp 98.6 F Temp Source Oral Pulse Oximetry (%) 96 Oxygen Delivery Method Room Air Allergies/Home Meds Allergies & Medications Allergies No Known Allergies Allergy (Verified 10/31/24 14:35) Medication Reconciliation escitalopram oxalate 10 mg tablet (Lexapro) 10 mg PO QDAY #60 tabs 10/13/24 [Rx Confirmed 10/31/24] Intake Visit Data Collection New Patient or Established: Established Patient (seen at [facility] within 3 years) Reason for Visit:: CARE Seen by Clinical Staff ONLY (RN/MA): No Director Adult Required: No Do You Feel Safe at Home: Yes Authorities Contacted: N/A PCP or OBGYN visit in last 3 months: Yes Hx Now: Yes Are you currently on any form of Control: No Pain Present Currently: No Pain Scale Used: Hahn-Magana/Numerical Pain scale:: 0 Smoking Status Smoking Status: Former smoker Questionnaires Covid-19 Vaccine Questionnaire Has patient been vacinated for Covid-19 Have you been vacinated for Covid-19: Yes PHQ-9 PHQ-2 Over the last 2 weeks, how often have you been bothered by any of the following problems? 1. Little interest or pleasure in doing things: nearly every day 2. Feeling down, depressed, or hopeless: more than half the days Total score: 5 PHQ-9 3. Trouble falling or staying asleep, or sleeping too much: More than one-half days 4. Feeling tired or having little energy: Nearly every day 5. Poor appetite or overeating: Several days 6. Feeling bad about yourself - or that you are a failure or have let yourself or your family down: Not at all 7. Trouble concentrating on things, such as reading the newspaper or watching television: More than one-half days 8. Moving or speaking so slowly that other people could have noticed? - Or the opposite - being so fidgety or restless that you have been moving around a lot more than usual: several days 9. Thoughts that you would be better off or of hurting yourself in some way: Not at all Total score: 14.0 If you checked off any problems, how difficult have these problems made it for you to do your work, take care of things at home, or get along with other people?: somewhat difficult Source: Developed by Drs. Gurjit Benentt, Lis Arvizu, Armaan De Souza and colleagues, with an educational korey from [employer]. Depression screen completed yes Social History Living Situation History Lives With: Family Housing: House Housing Other:: Works at [employer]. Spouse is a mechanical maintenance engineer. 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-?-?-?-?-?-?-?-?-?-?- 13w 5d 97.125 kg (+125.466 g) 132/78 14 147 Labs reviewed all questions answered. Urine dip glucose negative protein trace. Patient declines NIPT. She feels a little tired and has some round ligament pain but otherwise no complaints. No bleeding no contractions no loss of fluids. 08/27/24 -?-?-?-?-?-?-?-?-?-?-?-?- 16w 5d 100.868 kg (+3867.603 g) 138/81 16 154 active declined NIPT 09/03/24 -?-?-?-?-?-?-?-?-?-?-?-?- 17w 5d 102.739 kg (+5738.671 g) 139/76 137 active Had structural survey ultrasound today. Trying to work overtime. Discussed need for 8 hours of sleep. CBC thyroid B12 all normal. Patient reports good movement no contractions no loss of fluids no 09/24/24 -?-?-?-?-?-?-?-?-?-?-?-?- 20w 5d 105.404 kg (+8403.527 g) 128/82 21 135 active +FM No UC No LOF 10/13/24 -?-?-?-?-?-?-?-?-?-?-?-?- 23w 3d 106.594 kg (+9594.206 g) 120/81 24 143 active +FM, No VB or UCs Spouse and 3 y/o daughter present today 10/31/24 -?-?-?-?-?-?-?-?-?-?-?-?- 26w 0d 109.826 kg (+12.826 kg) 135/83 27 134 active Positive movement no vaginal bleeding or contractions Patient still has bilateral carpal tunnel MARIBEL Calculator Estimated Delivery Date Method Current WG Current Estimate 02/06/25 Ultrasound #1 26w 0d Other Estimates 02/08/25 LMP (Certain) 25w 5d Expected Delivery Route/Plan [facility] O-/Ab screen -/ RPR NR/RI/HepBSag-/HIV-/ Urine CX- Anticipate . Patient desires epidural. Specific Issue/Plans Vacuum-assisted vaginal delivery last delivery. O- blood type. Notes Visit Date: 10/31/24 Last Updated by: Darby Peacock (OB Clinic)MD Order CBC glucose challenge test RPR. No ultrasound from structural survey on chart. Done at [facility]. Visit Date: 10/13/24 Last Updated by: Darby Peacock (OB Clinic)MD The patient is crying and quite upset today. She had a panic attack on 10/11/2024 at work. 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 Patient states she is overwhelmed at work. She does not understand why she keeps crying. She states she usually can handle a lot more than this. She is also reporting some right sided carpal tunnel. After her first delivery in [address] Del Castillo she did suffer from with the baby blues but was not on any medication. She states she has not had panic attacks since college. She has never been on antidepressants. She is amendable to trying Lexapro and counseling. We did discuss the fact that one of her colleagues is going to be off soon on maternity leave and the patient is worried that they will increase her caseload. 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 We can try to send her to physical therapy for her carpal tunnel. If counseling and medication do not work we might consider taking the patient off early on disability. Visit Date: 08/27/24 Last Updated by: Darby Peacock (OB Clinic)MD Pt is very tired. Ordered CBC, B12, TSH. 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 Visit Date: 08/06/24 Last Updated by: Darby Peacock (OB Clinic)MD Patient declines NIPT. She had a vacuum delivery with her daughter with Dr. Del Castillo. She had an epidural. She states she pushed a long time. The baby was in the 6 pound range. Office Procedures OB Clinic LOC & Office Proc's Nursing/Assessment Patient Status: Established Patient OB Clinic Nursing Assessment: Medication Reconciliation, Update PMH in EMR and Vital Signs OB Clinic Coordination of Care: Complex Care and Chronic Disease 1-5, Consent,records obtained, informed consent, Education Simp Pt/Fam, Lab and Imaging orders, Results/Orders obtained and Staff clarify orders Special Needs: Heart tones Established Patient Charge Established Patient Point Assignment: 135 Established Patient Point Charge: EP Level 4 (120-155) Assessment & Plan Diagnosis / Problem List (1) : Status: Acute Qualifiers: Weeks of gestation: 26 weeks Qualified Code(s): Z3A.26 - 26 weeks gestation of Plan: Order glucose challenge test CBC syphilis
== END 2024-10-31 15:11 | disposition home or self-care (01) ==
LOC: HODSOBC 14:21
PROVIDERS: PCP Obstetrics & Gynecology; Referring Provider Obstetrics & Gynecology; Supervising Provider Obstetrics & Gynecology; Visit Provider Obstetrics & Gynecology
DX: O09.892 Supervision of other high risk pregnancies, second trimester (principal); O99.352 Diseases of the nervous system complicating pregnancy, second trimester; Z3A.26 26 weeks gestation of pregnancy; G56.03 Carpal tunnel syndrome, bilateral upper limbs; Z87.891 Personal history of nicotine dependence
CPT/HCPCS: 99214; G0463

== ENCOUNTER → 2024-11-10 | Outpatient (CLI) | payer BC, SELFPAY ==
[2024-11-10 11:54] LABS: Glucose,1 Hour PP 50gm Dose 112 mg/dL (80-140)
== END | disposition home or self-care (01) ==
PROVIDERS: PCP Physician Assistant; Referring Provider Obstetrics & Gynecology; Visit Provider Obstetrics & Gynecology
DX: Z34.90 Encounter for supervision of normal pregnancy, unspecified, unspecified trimester (principal)
CPT/HCPCS: 36415; 82950

== ENCOUNTER 2024-11-20 09:49 | Outpatient (AMB) | payer BC, SELFPAY ==
[2024-11-20 10:01] VITALS: BP 126/83; PULSE 102; RESP 17; TEMP 37.1; O2SAT 98; BMI 38.4
--- NOTE | 2024-11-20 10:01 | OBCLNT_ITS ---
Vital Signs 11/20/24 10:01 Height 1.7 m Height Method Stated Weight 111.13 kg Weight Measurement Method Standing Scale BMI 38.4 BP 126/83 Blood Pressure Source Automatic Cuff Blood Pressure Location Right Upper Arm Position Sitting Respiration 17 Pulse 102 H Pulse Source Monitor Temp 98.8 F Temp Source Temporal Artery Scan Pulse Oximetry (%) 98 Oxygen Delivery Method Room Air Allergies/Home Meds Allergies & Medications Allergies No Known Allergies Allergy (Verified 11/20/24 10:02) Medication Reconciliation escitalopram oxalate 10 mg tablet (Lexapro) 10 mg PO QDAY #60 tabs 10/13/24 [Rx Confirmed 11/20/24] Intake Visit Data Collection New Patient or Established: Established Patient (seen at [facility] within 3 years) Reason for Visit:: OBC 28W6D / [place]AL[place]AM [employer] Mechanical Required: No Do You Feel Safe at Home: Yes Authorities Contacted: N/A PCP or OBGYN visit in last 3 months: Yes Date of Last PCP or OBGYN visit: 10/31/24 Hx Now: Yes Are you currently on any form of Control: No Pain Present Currently: No Pain Scale Used: Hahn-Magana/Numerical Pain scale:: 0 Smoking Status Smoking Status: Former smoker Questionnaires Covid-19 Vaccine Questionnaire Has patient been vacinated for Covid-19 Have you been vacinated for Covid-19: No PHQ-9 PHQ-2 Over the last 2 weeks, how often have you been bothered by any of the following problems? 1. Little interest or pleasure in doing things: not at all 2. Feeling down, depressed, or hopeless: not at all Total score: 0 PHQ-9 3. Trouble falling or staying asleep, or sleeping too much: Not at all 4. Feeling tired or having little energy: Not at all 5. Poor appetite or overeating: Not at all 6. Feeling bad about yourself - or that you are a failure or have let yourself or your family down: Not at all 7. Trouble concentrating on things, such as reading the newspaper or watching television: Not at all 8. Moving or speaking so slowly that other people could have noticed? - Or the opposite - being so fidgety or restless that you have been moving around a lot more than usual: several days 9. Thoughts that you would be better off or of hurting yourself in some way: Not at all Total score: 1 If you checked off any problems, how difficult have these problems made it for you to do your work, take care of things at home, or get along with other people?: not difficult at all Source: Developed by Drs. Gurjit Bennett, Lis Arvizu, Armaan De Souza and colleagues, with an educational korey from [employer]. Depression screen completed yes Social History Living Situation History Marital Status: Lives With: Family Housing: House Housing Other:: Works at [employer]. Spouse is a dental mechanic. 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-?-?-?-?-?-?-?-?-?-?- 13w 5d 97.125 kg (+125.466 g) 132/78 14 147 Labs reviewed all questions answered. Urine dip glucose negative protein trace. Patient declines NIPT. She feels a little tired and has some round ligament pain but otherwise no complaints. No bleeding no contractions no loss of fluids. 08/27/24 -?-?-?-?-?-?-?-?-?-?-?-?- 16w 5d 100.868 kg (+3867.603 g) 138/81 16 154 active declined NIPT 09/03/24 -?-?-?-?-?-?-?-?-?-?-?-?- 17w 5d 102.739 kg (+5738.671 g) 139/76 137 active Had structural survey ultrasound today. Trying to work overtime. Discussed need for 8 hours of sleep. CBC thyroid B12 all normal. Patient reports good movement no contractions no loss of fluids no 09/24/24 -?-?-?-?-?-?-?-?-?-?-?-?- 20w 5d 105.404 kg (+8403.527 g) 128/82 21 135 active +FM No UC No LOF 10/13/24 -?-?-?-?-?-?-?-?-?-?-?-?- 23w 3d 106.594 kg (+9594.206 g) 120/81 24 143 active +FM, No VB or UCs Spouse and 3 y/o daughter present today 10/31/24 -?-?-?-?-?-?-?-?-?-?-?-?- 26w 0d 109.826 kg (+12.826 kg) 135/83 27 134 active Positive movement no vaginal bleeding or contractions Patient still has bilateral carpal tunnel 11/20/24 -?-?-?-?-?-?-?-?-?-?-?-?- 28w 6d 111.13 kg (+14.13 kg) 126/83 absent unknown 28 145 activ e + FM, denies LOF,VB.UC. here for Rhogam. several concern today. c/o mucous vag discharge, no c/o itching or burning. patient also c/o headache, sees stars sometime and back ache + FM, denies LOF,VB.UC. here for Rhogam. several concern today. c/o mucous vag discharge, no c/o itching or burning. patient also c/o headache, sees stars sometime and back ache. No bleeding.small leukorrhea New swab plus today. I advised patient to continue with Tylenol as she was urged to her last visit. Also patient encouraged to increase fluids. Increase proteins and small frequent meals. With c/o talked about comfort measures for back pain and the use of maternity girdle. Also discussed use salon pass or getting massages. RhoGAM was given today. Patient is to keep her appointment with her OB next visit MARIBEL Calculator Estimated Delivery Date Method Current WG Current Estimate 02/06/25 Ultrasound #1 28w 6d Other Estimates 02/08/25 LMP (Certain) 28w 4d Expected Delivery Route/Plan [facility] O-/Ab screen -/ RPR NR/RI/HepBSag-/HIV-/ Urine CX- Anticipate . Patient desires epidural. Specific Issue/Plans Vacuum-assisted vaginal delivery last delivery. O- blood type. Notes Visit Date: 10/31/24 Last Updated by: Darby Peacock (OB Clinic)MD Order CBC glucose challenge test RPR. No ultrasound from structural survey on chart. Done at [facility]. Visit Date: 10/13/24 Last Updated by: Darby Peacokc (OB Clinic)MD The patient is crying and quite upset today. She had a panic attack on 10/11/2024 at work. 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 Patient states she is overwhelmed at work. She does not understand why she keeps crying. She states she usually can handle a lot more than this. She is also reporting some right sided carpal tunnel. After her first delivery in [address] Del Castillo she did suffer from with the baby blues but was not on any medication. She states she has not had panic attacks since college. She has never been on antidepressants. She is amendable to trying Lexapro and counseling. We did discuss the fact that one of her colleagues is going to be off soon on maternity leave and the patient is worried that they will increase her caseload. 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 We can try to send her to physical therapy for her carpal tunnel. If counseling and medication do not work we might consider taking the patient off early on disability. Visit Date: 08/27/24 Last Updated by: Darby Peacock (OB Clinic)MD Pt is very tired. Ordered CBC, B12, TSH. 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 Visit Date: 08/06/24 Last Updated by: Darby Peacock (OB Clinic)MD Patient declines NIPT. She had a vacuum delivery with her daughter with Dr. Del Castillo. She had an epidural. She states she pushed a long time. The baby was in the 6 pound range. Office Procedures OB Clinic LOC & Office Proc's Nursing/Assessment Patient Status: Established Patient OB Clinic Nursing Assessment: Medication Reconciliation, Update PMH in EMR and Vital Signs OB Clinic Coordination of Care: Complex Care and Chronic Disease 1-5, Consent,records obtained, informed consent, Education Simp Pt/Fam and Staff clarify orders Special Needs: Heart tones Established Patient Charge Established Patient Point Assignment: 115 Established Patient Point Charge: EP Level 3 (80-115) Injection/Vaccine Admin Admin 1st Vaccine: Yes Office Meds Rhophylac 1,500 unit (300 mcg)/2 mL injection syringe Performing Provider: Genoveva Christianson CNM Performing Location: [facility] Administered by: Le Marin MA on 11/20/24 15:16 Dose Route Admin Location Dispensed Lot Number Expiration Date [facility] Supervisor [employer] 1,500 unit IM LEFT GLUTE 2 mL [id number] 11/01/26 43303-982-18 [address] [facility] Assessment & Plan Diagnosis / Problem List (1) High risk case management patient in third trimester: Status: Acute (2) Rh negative status during : Status: Acute Qualifiers: Trimester: second trimester Qualified Code(s): O26.892 - Other specified related conditions, second trimester; Z67.91 - Unspecified blood type, Rh negative Plan RhoGAM today. Discussed comfort measures for backache and ligament pain. I discussed comfort measures for ongoing headache. Continue Tylenol. Increase fluids and small frequent meals. And patient advised to increase proteins as well. Discussed labor precautions. New swab today. In comforts for vaginitis. Will treat if positive. And follow-up with OB at her scheduled next appointment. Additional Plan Follow Up: 3 Weeks (OBC)
== END 2024-11-20 10:45 | disposition home or self-care (01) ==
LOC: HODSOBC 09:49
PROVIDERS: Supervising Provider Advanced Practice Midwife; Visit Provider Advanced Practice Midwife
DX: O09.893 Supervision of other high risk pregnancies, third trimester (principal); Z3A.28 28 weeks gestation of pregnancy; O26.893 Other specified pregnancy related conditions, third trimester; Z67.41 Type O blood, Rh negative
CPT/HCPCS: 90471; 96372; 99213; J3490; G0463; J2791

== ENCOUNTER 2024-12-01 11:15 | Outpatient (AMB) | payer BC, SELFPAY ==
--- NOTE | 2024-12-01 11:21 | OBCLNT_ITS ---
Vital Signs 12/01/24 11:22 Height 1.7 m Height Method Stated Weight 112.661 kg Weight Measurement Method Standing Scale BMI 38.9 BP 133/86 H Blood Pressure Source Automatic Cuff Blood Pressure Location Left Upper Arm Position Sitting Respiration 18 Pulse 97 Pulse Source Monitor Temp 98.6 F Temp Source Oral Pulse Oximetry (%) 97 Oxygen Delivery Method Room Air Allergies/Home Meds Allergies & Medications Allergies No Known Allergies Allergy (Verified 12/01/24 11:29) Medication Reconciliation escitalopram oxalate 10 mg tablet (Lexapro) 10 mg PO QDAY #60 tabs 10/13/24 [Rx Confirmed 12/01/24] Intake Visit Data Collection New Patient or Established: Established Patient (seen at [facility] within 3 years) Reason for Visit:: CARE Seen by Clinical Staff ONLY (RN/MA): No Occupational Therapist Assistants Required: No Do You Feel Safe at Home: Yes Authorities Contacted: N/A PCP or OBGYN visit in last 3 months: Yes Hx Now: Yes Are you currently on any form of Control: No Pain Present Currently: Yes Pain Location: Hand Pain Scale Used: Ahhn-Magana/Numerical Pain scale:: 7 Smoking Status Smoking Status: Former smoker Questionnaires Covid-19 Vaccine Questionnaire Has patient been vacinated for Covid-19 Have you been vacinated for Covid-19: Yes PHQ-9 PHQ-2 Over the last 2 weeks, how often have you been bothered by any of the following problems? 1. Little interest or pleasure in doing things: more than half the days 2. Feeling down, depressed, or hopeless: more than half the days Total score: 4 PHQ-9 3. Trouble falling or staying asleep, or sleeping too much: More than one-half days 4. Feeling tired or having little energy: Nearly every day 5. Poor appetite or overeating: More than one-half days 6. Feeling bad about yourself - or that you are a failure or have let yourself or your family down: More than one-half days 7. Trouble concentrating on things, such as reading the newspaper or watching television: More than one-half days 8. Moving or speaking so slowly that other people could have noticed? - Or the opposite - being so fidgety or restless that you have been moving around a lot more than usual: several days 9. Thoughts that you would be better off or of hurting yourself in some way: Not at all Total score: 16.0 Source: Developed by Drs. Gurjit Bennett, Lis Arvizu, Armaan De Souza and colleagues, with an educational korey from [employer]. Depression screen completed yes Social History Living Situation History Lives With: Family Housing: House Housing Other:: Works at [employer]. Spouse is a laundry machine mechanic. 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: Past Medical History Past Medical History: No Hx Neurological Disorders, No Hx Hypothyroidism, No Hx Hyperthyroidism, No Hx Cardiac Disorders, No Hx Cancer, No Hx Blood Disorders, No Hx Anemia, No Hx Gastrointestinal Disorders, No Hx Renal Disease, No Hx Diabetes Mellitus Type 1, No Hx Diabetes Mellitus Type 2 and No Hx Polycystic Ovarian Syndrome Care OB Visit Log OB Flowsheet Initial Weight: 97 kg Date -?-?-?-?-?-?-?-?-?-?-?-?- EGA Weight BP Alb Glu CTX Pres Fundal ht FHR Mov Dilation Station Effacement Hx Notes Visit Note 07/01/24 -?-?-?-?-?-?-?-?-?-?-?-?- 8w 4d 95.254 kg (-1745.603 g) 135/76 135 08/06/24 -?-?-?-?-?-?-?-?-?-?-?-?- 13w 5d 97.125 kg (+125.466 g) 132/78 14 147 Labs reviewed all questions answered. Urine dip glucose negative protein trace. Patient declines NIPT. She feels a little tired and has some round ligament pain but otherwise no complaints. No bleeding no contractions no loss of fluids. 08/27/24 -?-?-?-?-?-?-?-?-?-?-?-?- 16w 5d 100.868 kg (+3867.603 g) 138/81 16 154 active declined NIPT 09/03/24 -?-?-?-?-?-?-?-?-?-?-?-?- 17w 5d 102.739 kg (+5738.671 g) 139/76 137 active Had structural survey ultrasound today. Trying to work overtime. Discussed need for 8 hours of sleep. CBC thyroid B12 all normal. Patient reports good movement no contractions no loss of fluids no 09/24/24 -?-?-?-?-?-?-?-?-?-?-?-?- 20w 5d 105.404 kg (+8403.527 g) 128/82 21 135 active +FM No UC No LOF 10/13/24 -?-?-?-?-?-?-?-?-?-?-?-?- 23w 3d 106.594 kg (+9594.206 g) 120/81 24 143 active +FM, No VB or UCs Spouse and 3 y/o daughter present today 10/31/24 -?-?-?-?-?-?-?-?-?-?-?-?- 26w 0d 109.826 kg (+12.826 kg) 135/83 27 134 active Positive movement no vaginal bleeding or contractions Patient still has bilateral carpal tunnel 11/20/24 -?-?-?-?-?-?-?-?-?-?-?-?- 28w 6d 111.13 kg (+14.13 kg) 126/83 absent unknown 28 145 activ e + FM, denies LOF,VB.UC. here for Rhogam. several concern today. c/o mucous vag discharge, no c/o itching or burning. patient also c/o headache, sees stars sometime and back ache + FM, denies LOF,VB.UC. here for Rhogam. several concern today. c/o mucous vag discharge, no c/o itching or burning. patient also c/o headache, sees stars sometime and back ache. No bleeding.small leukorrhea New swab plus today. I advised patient to continue with Tylenol as she was urged to her last visit. Also patient encouraged to increase fluids. Increase proteins and small frequent meals. With c/o talked about comfort measures for back pain and the use of maternity girdle. Also discussed use salon pass or getting massages. RhoGAM was given today. Patient is to keep her appointment with her OB next visit 12/01/24 -?-?-?-?-?-?-?-?-?-?-?-?- 30w 3d 112.661 kg (+15.661 kg) 133/86 occasional unknown 31 145 active Good movement no contractions no loss of fluids Eze mccullough has severe carpal tunnel and she states her blood pressure has been elevated at home with headaches. History of preeclampsia last . Off work on modified bedrest. MARIBEL Calculator Estimated Delivery Date Method Current WG Current Estimate 02/06/25 Ultrasound #1 30w 3d Other Estimates 02/08/25 LMP (Certain) 30w 1d Expected Delivery Route/Plan [facility] Labs: O-/Ab screen -/ RPR NR/RI/HepBSag-/HIV-/ Urine CX-/1 hour glucose 112 Anticipate . Patient desires epidural. Specific Issue/Plans Vacuum-assisted vaginal delivery last delivery. O- blood type. Had rhogam at 28 weeks Notes Visit Date: 12/01/24 Last Updated by: Darby Peacock (OB Clinic)MD Note given for off work of 31 weeks secondary to headaches swelling and history of preeclampsia. Patient on modified bedrest and will check her blood pressures. Ultrasound from [facility] obtained from 09/03/2024 baby was 17-5/7-week with an EDC of 02/06/2025 with a normal structural survey and an anterior fundal placenta with no previa. Visit Date: 10/31/24 Last Updated by: Darby Peacock (OB Clinic)MD Order CBC glucose challenge test RPR. No ultrasound from structural survey on chart. Done at [facility]. Visit Date: 10/13/24 Last Updated by: Darby Peacock (OB Clinic)MD The patient is crying and quite upset today. She had a panic attack on 10/11/2024 at work. 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 Patient states she is overwhelmed at work. She does not understand why she keeps crying. She states she usually can handle a lot more than this. She is also reporting some right sided carpal tunnel. After her first delivery in [address] Del Castillo she did suffer from with the baby blues but was not on any medication. She states she has not had panic attacks since college. She has never been on antidepressants. She is amendable to trying Lexapro and counseling. We did discuss the fact that one of her colleagues is going to be off soon on maternity leave and the patient is worried that they will increase her caseload. 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 We can try to send her to physical therapy for her carpal tunnel. If counseling and medication do not work we might consider taking the patient off early on disability. Visit Date: 08/27/24 Last Updated by: Darby Peacock (OB Clinic)MD Pt is very tired. Ordered CBC, B12, TSH. 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 Visit Date: 08/06/24 Last Updated by: Darby Peacock (OB Clinic)MD Patient declines NIPT. She had a vacuum delivery with her daughter with Dr. Del Castillo. She had an epidural. She states she pushed a long time. The baby was in the 6 pound range. Office Procedures OB Clinic LOC & Office Proc's Nursing/Assessment Patient Status: Established Patient OB Clinic Nursing Assessment: Medication Reconciliation, Update PMH in EMR and Vital Signs OB Clinic Coordination of Care: Complex Care and Chronic Disease 1-5, Consent,records obtained, informed consent, Education Simp Pt/Fam, Lab and Imaging orders, Results/Orders obtained and Staff clarify orders Special Needs: Heart tones Established Patient Charge Established Patient Point Assignment: 135 Established Patient Point Charge: EP Level 4 (120-155) Assessment & Plan Diagnosis / Problem List (1) Rh negative status during : Status: Acute Qualifiers: Trimester: third trimester Qualified Code(s): O26.893 - Other specified related conditions, third trimester; Z67.91 - Unspecified blood type, Rh negative (2) : Status: Acute Qualifiers: Weeks of gestation: 30 weeks Qualified Code(s): Z3A.30 - 30 weeks gestation of (3) High risk case management patient in third trimester: Status: Acute Plan: History of preeclampsia. Some elevated blood pressures at home with headaches. Home on modified bedrest. Off work. Patient is a lot of disability forms. Note given. Additional Plan Follow Up: 4 Weeks 2 Weeks
[2024-12-01 11:22] VITALS: BP 133/86; PULSE 97; RESP 18; TEMP 37; O2SAT 97; BMI 38.9
== END 2024-12-01 12:10 | disposition home or self-care (01) ==
PROVIDERS: Supervising Provider Obstetrics & Gynecology; Visit Provider Obstetrics & Gynecology
DX: O09.893 Supervision of other high risk pregnancies, third trimester (principal); Z67.41 Type O blood, Rh negative; O99.891 Other specified diseases and conditions complicating pregnancy; R03.0 Elevated blood-pressure reading, without diagnosis of hypertension; O99.353 Diseases of the nervous system complicating pregnancy, third trimester; G56.00 Carpal tunnel syndrome, unspecified upper limb; O09.293 Supervision of pregnancy with other poor reproductive or obstetric history, third trimester; R51.9 Headache, unspecified; Z87.59 Personal history of other complications of pregnancy, childbirth and the puerperium; Z3A.30 30 weeks gestation of pregnancy
CPT/HCPCS: 99214; G0463

== ENCOUNTER → 2024-12-08 | Outpatient (CLI) | payer BC, SELFPAY ==
[2024-12-08 10:30] LABS: Basophils # (Auto) 0.1 Thou/mm3 (0.0-0.2); Basophils % (Auto) 0 % (0-2.5); Eosinophils # (Auto) 0.1 Thou/mm3 (0.0-0.5); Eosinophils % (Auto) 1 % (0-10); Hematocrit 37.6 % (36.0-46.0); Hemoglobin 12.8 g/dL (12.0-16.0); Immature Granulocytes Auto 0.27 Thou/mm3 (0.00-0.00); Lymphocytes # (Auto) 2.6 Thou/mm3 (1.0-4.8); Lymphocytes % (Auto) 15 % (10-50); Mean Corpuscular HGB Conc 34.0 g/dl (31.0-37.0); Mean Corpuscular Hemoglobin 29.9 pg (25.0-35.0); Mean Corpuscular Volume 88 fL (80-100); Monocytes # (Auto) 0.7 Thou/mm3 (0.0-0.8); Monocytes % (Auto) 4 % (0-12); Neutrophils # (Auto) 13.5 Thou/mm3 (1.8-7.7); Neutrophils % (Auto) 79 % (37-80); Nucleated Red Blood Cell # 0.00 Thou/mm3 (0.00-0.00); Nucleated Red Blood Cell % 0 /100 WBC (0); Platelet Count 244 Thou/mm3 (140-440); RDW Standard Deviation 41.3 fL (36.4-46.3); Red Blood Count 4.28 Miln/mm3 (4.00-5.20); White Blood Count 17.2 Thou/mm3 (3.6-11.0)
[2024-12-08 11:33] LABS: Syphilis Nonreactive (Nonreactive)
== END | disposition home or self-care (01) ==
PROVIDERS: PCP Physician Assistant; Referring Provider Obstetrics & Gynecology; Visit Provider Obstetrics & Gynecology
DX: Z34.93 Encounter for supervision of normal pregnancy, unspecified, third trimester (principal)
CPT/HCPCS: 36415; 85025; 86780

== ENCOUNTER 2024-12-22 09:31 | Outpatient (AMB) | payer BC, SELFPAY ==
[2024-12-22 09:51] VITALS: BP 124/87; PULSE 100; RESP 16; TEMP 36.2; O2SAT 97; BMI 39.6
--- NOTE | 2024-12-22 09:51 | OBCLNT_ITS ---
Vital Signs 12/22/24 09:51 Height 1.7 m Height Method Stated Weight 114.419 kg Weight Measurement Method Standing Scale BMI 39.6 BP 124/87 H Blood Pressure Source Automatic Cuff Blood Pressure Location Left Upper Arm Position Sitting Respiration 16 Pulse 100 Pulse Source Monitor Temp 97.2 F Temp Source Oral Pulse Oximetry (%) 97 Oxygen Delivery Method Room Air Allergies/Home Meds Allergies & Medications Allergies No Known Allergies Allergy (Verified 12/22/24 09:53) Medication Reconciliation escitalopram oxalate 10 mg tablet (Lexapro) 10 mg PO QDAY #60 tabs 10/13/24 [Rx Confirmed 12/22/24] Intake Visit Data Collection New Patient or Established: Established Patient (seen at [facility] within 3 years) Reason for Visit:: OBC Seen by Clinical Staff ONLY (RN/MA): No Train Control Electronic Technician Required: No Do You Feel Safe at Home: Yes Authorities Contacted: N/A PCP or OBGYN visit in last 3 months: Yes Date of Last PCP or OBGYN visit: 12/01/24 Hx Now: Yes Are you currently on any form of Control: No Pain Present Currently: No Pain Scale Used: Hahn-Magana/Numerical Pain scale:: 0 Smoking Status Smoking Status: Former smoker Questionnaires Covid-19 Vaccine Questionnaire Has patient been vacinated for Covid-19 Have you been vacinated for Covid-19: Yes PHQ-9 PHQ-2 Over the last 2 weeks, how often have you been bothered by any of the following problems? 1. Little interest or pleasure in doing things: more than half the days 2. Feeling down, depressed, or hopeless: not at all Total score: 2 PHQ-9 3. Trouble falling or staying asleep, or sleeping too much: Not at all 4. Feeling tired or having little energy: Not at all 5. Poor appetite or overeating: Not at all 6. Feeling bad about yourself - or that you are a failure or have let yourself or your family down: Not at all 7. Trouble concentrating on things, such as reading the newspaper or watching television: Not at all 8. Moving or speaking so slowly that other people could have noticed? - Or the opposite - being so fidgety or restless that you have been moving around a lot more than usual: several days 9. Thoughts that you would be better off or of hurting yourself in some way: Not at all Total score: 3 If you checked off any problems, how difficult have these problems made it for you to do your work, take care of things at home, or get along with other people?: not difficult at all Source: Developed by Drs. Gurjit Bennett, Lis Arvizu, Armaan De Souza and colleagues, with an educational korey from [employer]. Depression screen completed yes Social History Living Situation History Lives With: Family Housing: House Housing Other:: Works at [employer]. Spouse is a aircraft mechanic electrical and radio. 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-?-?-?-?-?-?-?-?-?-?- 13w 5d 97.125 kg (+125.466 g) 132/78 14 147 Labs reviewed all questions answered. Urine dip glucose negative protein trace. Patient declines NIPT. She feels a little tired and has some round ligament pain but otherwise no complaints. No bleeding no contractions no loss of fluids. 08/27/24 -?-?-?-?-?-?-?-?-?-?-?-?- 16w 5d 100.868 kg (+3867.603 g) 138/81 16 154 active declined NIPT 09/03/24 -?-?-?-?-?-?-?-?-?-?-?-?- 17w 5d 102.739 kg (+5738.671 g) 139/76 137 active Had structural survey ultrasound today. Trying to work overtime. Discussed need for 8 hours of sleep. CBC thyroid B12 all normal. Patient reports good movement no contractions no loss of fluids no 09/24/24 -?-?-?-?-?-?-?-?-?-?-?-?- 20w 5d 105.404 kg (+8403.527 g) 128/82 21 135 active +FM No UC No LOF 10/13/24 -?-?-?-?-?-?-?-?-?-?-?-?- 23w 3d 106.594 kg (+9594.206 g) 120/81 24 143 active +FM, No VB or UCs Spouse and 3 y/o daughter present today 10/31/24 -?-?-?-?-?-?-?-?-?-?-?-?- 26w 0d 109.826 kg (+12.826 kg) 135/83 27 134 active Positive movement no vaginal bleeding or contractions Patient still has bilateral carpal tunnel 11/20/24 -?-?-?-?-?-?-?-?-?-?-?-?- 28w 6d 111.13 kg (+14.13 kg) 126/83 absent unknown 28 145 activ e + FM, denies LOF,VB.UC. here for Rhogam. several concern today. c/o mucous vag discharge, no c/o itching or burning. patient also c/o headache, sees stars sometime and back ache + FM, denies LOF,VB.UC. here for Rhogam. several concern today. c/o mucous vag discharge, no c/o itching or burning. patient also c/o headache, sees stars sometime and back ache. No bleeding.small leukorrhea New swab plus today. I advised patient to continue with Tylenol as she was urged to her last visit. Also patient encouraged to increase fluids. Increase proteins and small frequent meals. With c/o talked about comfort measures for back pain and the use of maternity girdle. Also discussed use salon pass or getting massages. RhoGAM was given today. Patient is to keep her appointment with her OB next visit 12/01/24 -?-?-?-?-?-?-?-?-?-?-?-?- 30w 3d 112.661 kg (+15.661 kg) 133/86 occasional unknown 31 145 active Good movement no contractions no loss of fluids P jamel has severe carpal tunnel and she states her blood pressure has been elevated at home with headaches. History of preeclampsia last . Off work on modified bedrest. 12/22/24 -?-?-?-?-?-?-?-?-?-?-?-?- 33w 3d 114.419 kg (+17.419 kg) 124/87 occasional cephalic 36 145 active Good movement no contractions no loss of fluid Off work due to carpal tunnel. Ultrasound size greater than dates MARIBEL Calculator Estimated Delivery Date Method Current WG Current Estimate 02/06/25 Ultrasound #1 33w 3d Other Estimates 02/08/25 LMP (Certain) 33w 1d Expected Delivery Route/Plan [facility] Labs: O-/Ab screen -/ RPR NR/RI/HepBSag-/HIV-/ Urine CX-/1 hour glucose 112 DECLINED NIPT Anticipate . Patient desires epidural. Specific Issue/Plans Vacuum-assisted vaginal delivery last delivery. O- blood type. Had rhogam at 28 weeks Notes Visit Date: 12/22/24 Last Updated by: Darby Peacock (OB Clinic)MD Schedule ultrasound size greater than dates Pt with [facility] Dr Del Castillo in the past pushed a long time Visit Date: 12/01/24 Last Updated by: Darby Peacock (OB Clinic)MD Note given for off work of 31 weeks secondary to headaches swelling and history of preeclampsia. Patient on modified bedrest and will check her blood pressures. Ultrasound from [facility] obtained from 09/03/2024 baby was 17-5/7-week with an EDC of 02/06/2025 with a normal structural survey and an anterior fundal placenta with no previa. Visit Date: 10/31/24 Last Updated by: Darby Peacock (OB Clinic)MD Order CBC glucose challenge test RPR. No ultrasound from structural survey on chart. Done at [facility]. Visit Date: 10/13/24 Last Updated by: Darby Peacock (OB Clinic)MD The patient is crying and quite upset today. She had a panic attack on 10/11/2024 at work. 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 Patient states she is overwhelmed at work. She does not understand why she keeps crying. She states she usually can handle a lot more than this. She is also reporting some right sided carpal tunnel. After her first delivery in [address] Del Castillo she did suffer from with the baby blues but was not on any medication. She states she has not had panic attacks since college. She has never been on antidepressants. She is amendable to trying Lexapro and counseling. We did discuss the fact that one of her colleagues is going to be off soon on maternity leave and the patient is worried that they will increase her caseload. 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 We can try to send her to physical therapy for her carpal tunnel. If counseling and medication do not work we might consider taking the patient off early on disability. Visit Date: 08/27/24 Last Updated by: Darby Peacock (OB Clinic)MD Pt is very tired. Ordered CBC, B12, TSH. 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 Visit Date: 08/06/24 Last Updated by: Darby Peacock (OB Clinic)MD Patient declines NIPT. She had a vacuum delivery with her daughter with Naseem Del Castillo. She had an epidural. She states she pushed a long time. The baby was in the 6 pound range. Office Procedures OB Clinic LOC & Office Proc's Nursing/Assessment Patient Status: Established Patient OB Clinic Nursing Assessment: Medication Reconciliation, Update PMH in EMR and Vital Signs OB Clinic Coordination of Care: Education Complex Pt/Fam, Consent,records obtained, informed consent, Lab and Imaging orders and Staff clarify orders Special Needs: Heart tones Established Patient Charge Established Patient Point Assignment: 110 Established Patient Point Charge: EP Level 3 (80-115) Assessment & Plan Diagnosis / Problem List (1) Rh negative status during : Status: Acute Qualifiers: Trimester: third trimester Qualified Code(s): O26.893 - Other specified related conditions, third trimester; Z67.91 - Unspecified blood type, Rh negative Plan: Status post RhoGAM (2) : Status: Acute Qualifiers: Weeks of gestation: 33 weeks Qualified Code(s): Z3A.33 - 33 weeks gestation of
== END 2024-12-22 10:37 | disposition home or self-care (01) ==
LOC: HODSOBC 09:32
PROVIDERS: Supervising Provider Obstetrics & Gynecology; Visit Provider Obstetrics & Gynecology
DX: O09.893 Supervision of other high risk pregnancies, third trimester (principal); O36.63X0 Maternal care for excessive fetal growth, third trimester, not applicable or unspecified; O99.353 Diseases of the nervous system complicating pregnancy, third trimester; G56.00 Carpal tunnel syndrome, unspecified upper limb; Z67.41 Type O blood, Rh negative; Z3A.33 33 weeks gestation of pregnancy; Z53.29 Procedure and treatment not carried out because of patient's decision for other reasons
CPT/HCPCS: 99213; G0463

== ENCOUNTER 2024-12-25 15:59 | Observation (INO) | payer BC, SELFPAY ==
[2024-12-25] VITALS (39 sets, daily range): BP systolic 113–138; BP diastolic 56–87; PULSE 82–125; RESP 16–98; TEMP 36.8; O2SAT 95–99; BMI 39.5
[2024-12-25 17:53] LABS: Collection Type, Urine Clean Catch
[2024-12-25 18:14] LABS: Creatinine,Random Urine 127 mg/dL (30-125); Protein Total, Random Urine 50 mg/dL (1-14)
[2024-12-25 18:15] LABS: Bilirubin,Urine Negative (Negative); Blood,Urine 1+ (Negative); Calcium Oxalate Crystals,Urine Rare; Clarity,Urine Clear (Clear/Hazy); Color,Urine Colorless (Lt Yel-Yel); Glucose, Urine Negative (Negative); Hyaline Casts,Urine < 1 /hpf (0-1); Ketones,Urine Negative (Negative); Leukocyte Esterase,Urine Negative (Negative); Nitrite,Urine Negative (Negative); PH,Urine 6.0 (5.0-7.0); Protein,Urine 1+ (Neg - Trace); RBC,Urine 6 /hpf (0-3); Specific Gravity,Urine 1.018 (1.001-1.035); Squamous Epithelial Cell,Urine 3 /hpf (0-5); Urobilinogen,Urine Negative mg/dL (0.0-1.0); WBC,Urine 3 /hpf (0-5)
[2024-12-25 18:18] LABS: Fibrinogen 494 mg/dL (175-375); INR 0.9 (0.9-1.3); Partial Thromboplastin Time 22.3 Seconds (22.0-36.0); Prothrombin Time 10.3 Seconds (9.0-12.2)
[2024-12-25 18:22] LABS: Basophils # (Auto) 0.1 Thou/mm3 (0.0-0.2); Basophils % (Auto) 0 % (0-2.5); Eosinophils # (Auto) 0.0 Thou/mm3 (0.0-0.5); Eosinophils % (Auto) 0 % (0-10); Hematocrit 36.6 % (36.0-46.0); Hemoglobin 12.2 g/dL (12.0-16.0); Immature Granulocytes Auto 0.25 Thou/mm3 (0.00-0.00); Lymphocytes # (Auto) 2.2 Thou/mm3 (1.0-4.8); Lymphocytes % (Auto) 14 % (10-50); Mean Corpuscular HGB Conc 33.3 g/dl (31.0-37.0); Mean Corpuscular Hemoglobin 29.3 pg (25.0-35.0); Mean Corpuscular Volume 88 fL (80-100); Monocytes # (Auto) 0.8 Thou/mm3 (0.0-0.8); Monocytes % (Auto) 5 % (0-12); Neutrophils # (Auto) 12.1 Thou/mm3 (1.8-7.7); Neutrophils % (Auto) 78 % (37-80); Nucleated Red Blood Cell # 0.00 Thou/mm3 (0.00-0.00); Nucleated Red Blood Cell % 0 /100 WBC (0); Platelet Count 244 Thou/mm3 (140-440); RDW Standard Deviation 41.9 fL (36.4-46.3); Red Blood Count 4.16 Miln/mm3 (4.00-5.20); White Blood Count 15.4 Thou/mm3 (3.6-11.0)
[2024-12-25 18:28] LABS: Alanine Aminotransferase 7 U/L (10-49); Albumin, Serum 3.9 gm/dL (3.5-5.0); Albumin/Globulin Ratio 1.6 (1.2-2.2); Alkaline Phosphatase 74 U/L (46-116); Anion Gap 11 (7-16); Aspartate Amino Transferase 12 U/L (0-34); BUN/Creatinine Ratio 10 Ratio (12-20); Bilirubin,Total 0.3 mg/dL (0.3-1.2); Blood Urea Nitrogen < 5 mg/dL (9-23); Calcium 9.3 mg/dL (8.3-10.6); Calcium (Corrected) 9.4 mg/dL (8.5-10.1); Carbon Dioxide 20.9 mMol/L (20.0-31.0); Chloride 106 mMol/L (98-107); Creatinine (Component) 0.5 mg/dL (0.6-1.3); Estimated Creatinine Clearance 220.8 mL/min (>60); Globulin 2.5 gm/dL (2.3-3.5); Glucose 90 mg/dL (74-106); LDH (Lactate Dehydrogenase) 130 U/L (120-246); Osmolality,Calculated 272 (275-295); Potassium 3.8 mMol/L (3.4-5.1); Sodium 138 mMol/L (136-145); Total Protein 6.4 gm/dL (5.7-8.2); Uric Acid 5.4 mg/dL (3.1-7.8); eGFR > 60 See Note
[2024-12-25] MEDS: ACETAMIN/CAFF/BUTAL (Fioricet) 1 TAB PO (19:15)
== END 2024-12-25 19:40 | disposition home or self-care (01) ==
PROVIDERS: Admitting Provider Obstetrics & Gynecology; Visit Provider Obstetrics & Gynecology
DX: O26.893 Other specified pregnancy related conditions, third trimester (principal); Z3A.33 33 weeks gestation of pregnancy; R03.0 Elevated blood-pressure reading, without diagnosis of hypertension; R51.9 Headache, unspecified; R42 Dizziness and giddiness; R07.89 Other chest pain
CPT/HCPCS: 36415; 59025; 59899; 80053; 81001; 82570; 83615; 84156; 84550; 85025; 85384; 85610; 85730; 87086; A9270

== ENCOUNTER 2025-01-05 09:37 | Outpatient (AMB) | payer BC, MEDICAID, SELFPAY ==
[2025-01-05 09:50] VITALS: BP 128/82; PULSE 98; RESP 18; TEMP 36.6; O2SAT 96; BMI 38.5
--- NOTE | 2025-01-05 09:50 | OBCLNT_ITS ---
Vital Signs 01/05/25 09:50 Height 1.73 m Height Method Stated Weight 114.929 kg Weight Measurement Method Standing Scale BMI 38.5 BP 128/82 Blood Pressure Source Automatic Cuff Blood Pressure Location Left Upper Arm Position Sitting Respiration 18 Pulse 98 Pulse Source Monitor Temp 97.8 F Temp Source Oral Pulse Oximetry (%) 96 Oxygen Delivery Method Room Air Allergies/Home Meds Allergies & Medications Allergies No Known Allergies Allergy (Verified 01/05/25 09:51) Medication Reconciliation escitalopram oxalate 10 mg tablet (Lexapro) 10 mg PO QDAY #60 tabs 10/13/24 [Rx Confirmed 01/05/25] vitamins no.115-iron 29 mg-folic acid 1 mg chewable tablet 1 tab PO QDAY 12/25/24 [History Confirmed 01/05/25] Intake Visit Data Collection New Patient or Established: Established Patient (seen at [facility] within 3 years) Reason for Visit:: CARE Seen by Clinical Staff ONLY (RN/MA): No 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 1. Little interest or pleasure in doing things: not at all 2. Feeling down, depressed, or hopeless: not at all Total score: 0 PHQ-9 3. Trouble falling or staying asleep, or sleeping too much: Not at all 4. Feeling tired or having little energy: Not at all 5. Poor appetite or overeating: Not at all 6. Feeling bad about yourself - or that you are a failure or have let yourself or your family down: Not at all 7. Trouble concentrating on things, such as reading the newspaper or watching television: Not at all 8. Moving or speaking so slowly that other people could have noticed? - Or the opposite - being so fidgety or restless that you have been moving around a lot more than usual: not at all 9. Thoughts that you would be better off or of hurting yourself in some way: Not at all Total score: 0 Source: Developed by Drs. Gurjit Bennett, Lis Arvizu, Armaan De Souza and colleagues, with an educational korey from [employer]. Depression screen completed yes Social History Living Situation History Lives With: Family Housing: House Housing Other:: Works at [employer]. Spouse is a kitchen mechanic. 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: Past Medical History Past Medical History: No Hx Neurological Disorders, No Hx Hypothyroidism, No Hx Hyperthyroidism, No Hx Cardiac Disorders, No Hx Cancer, No Hx Blood Disorders, No Hx Anemia, No Hx Gastrointestinal Disorders, No Hx Renal Disease, No Hx Diabetes Mellitus Type 1, No Hx Diabetes Mellitus Type 2 and No Hx Polycystic Ovarian Syndrome Care OB Visit Log OB Flowsheet Initial Weight: 97 kg Date -?-?-?-?-?-?-?-?-?-?-?-?- EGA Weight BP Alb Glu CTX Pres Fundal ht FHR Mov Dilation Station Effacement Hx Notes Visit Note 07/01/24 -?-?-?-?-?-?-?-?-?-?-?-?- 8w 4d 95.254 kg (-1745.603 g) 135/76 135 08/06/24 -?-?-?-?-?-?-?-?-?-?-?-?- 13w 5d 97.125 kg (+125.466 g) 132/78 14 147 Labs reviewed all questions answered. Urine dip glucose negative protein trace. Patient declines NIPT. She feels a little tired and has some round ligament pain but otherwise no complaints. No bleeding no contractions no loss of fluids. 08/27/24 -?-?-?-?-?-?-?-?-?-?-?-?- 16w 5d 100.868 kg (+3867.603 g) 138/81 16 154 active declined NIPT 09/03/24 -?-?-?-?-?-?-?-?-?-?-?-?- 17w 5d 102.739 kg (+5738.671 g) 139/76 137 active Had structural survey ultrasound today. Trying to work overtime. Discussed need for 8 hours of sleep. CBC thyroid B12 all normal. Patient reports good movement no contractions no loss of fluids no 09/24/24 -?-?-?-?-?-?-?-?-?-?-?-?- 20w 5d 105.404 kg (+8403.527 g) 128/82 21 135 active +FM No UC No LOF 10/13/24 -?-?-?-?-?-?-?-?-?-?-?-?- 23w 3d 106.594 kg (+9594.206 g) 120/81 24 143 active +FM, No VB or UCs Spouse and 3 y/o daughter present today 10/31/24 -?-?-?-?-?-?-?-?-?-?-?-?- 26w 0d 109.826 kg (+12.826 kg) 135/83 27 134 active Positive movement no vaginal bleeding or contractions Patient still has bilateral carpal tunnel 11/20/24 -?-?-?-?-?-?-?-?-?-?-?-?- 28w 6d 111.13 kg (+14.13 kg) 126/83 absent unknown 28 145 activ e + FM, denies LOF,VB.UC. here for Rhogam. several concern today. c/o mucous vag discharge, no c/o itching or burning. patient also c/o headache, sees stars sometime and back ache + FM, denies LOF,VB.UC. here for Rhogam. several concern today. c/o mucous vag discharge, no c/o itching or burning. patient also c/o headache, sees stars sometime and back ache. No bleeding.small leukorrhea New swab plus today. I advised patient to continue with Tylenol as she was urged to her last visit. Also patient encouraged to increase fluids. Increase proteins and small frequent meals. With c/o talked about comfort measures for back pain and the use of maternity girdle. Also discussed use salon pass or getting massages. RhoGAM was given today. Patient is to keep her appointment with her OB next visit 12/01/24 -?-?-?-?-?-?-?-?-?-?-?-?- 30w 3d 112.661 kg (+15.661 kg) 133/86 occasional unknown 31 145 active Good movement no contractions no loss of fluids P jamel has severe carpal tunnel and she states her blood pressure has been elevated at home with headaches. History of preeclampsia last . Off work on modified bedrest. 12/22/24 -?-?-?-?-?-?-?-?-?-?-?-?- 33w 3d 114.419 kg (+17.419 kg) 124/87 occasional cephalic 36 145 active Good movement no contractions no loss of fluid Off work due to carpal tunnel. Ultrasound size greater than dates 01/05/25 -?-?-?-?-?-?-?-?-?-?-?-?- 35w 3d 114.929 kg (+17.929 kg) 128/82 occasional cephalic 34 143 active 1 -2 80 Good movement no contractions no loss of fluids Patient pushed a long time and got a vacuum for a 6 pound 8 ounce baby last delivery. Has an ultrasound scheduled January 15 for size. MARIBEL Calculator Estimated Delivery Date Method Current WG Current Estimate 02/06/25 Ultrasound #1 35w 3d Other Estimates 02/08/25 LMP (Certain) 35w 1d Expected Delivery Route/Plan PNC Labs: O-/Ab screen -/ RPR NR/RI/HepBSag-/HIV-/ Urine CX-/1 hour glucose 112 DECLINED NIPT Anticipate . Patient desires epidural. Specific Issue/Plans Vacuum-assisted vaginal delivery last delivery. O- blood type. Had rhogam at 28 weeks Notes Visit Date: 01/05/25 Last Updated by: Darby Peacock (OB Clinic)MD Group B strep done. Adequate pelvic opening. Suspect patient was too numb last time with pushing . Per patient, she had a very dense epidural. Visit Date: 12/22/24 Last Updated by: Darby Peacock (OB Clinic)MD Schedule ultrasound size greater than dates Pt with VAVD Dr Del Castillo in the past pushed a long time Visit Date: 12/01/24 Last Updated by: Darby Peacock (OB Clinic)MD Note given for off work of 31 weeks secondary to headaches swelling and history of preeclampsia. Patient on modified bedrest and will check her blood pressures. Ultrasound from [facility] obtained from 09/03/2024 baby was 17-5/7-week with an EDC of 02/06/2025 with a normal structural survey and an anterior fundal placenta with no previa. Visit Date: 10/31/24 Last Updated by: Darby Peacock (OB Clinic)MD Order CBC glucose challenge test RPR. No ultrasound from structural survey on chart. Done at [facility]. Visit Date: 10/13/24 Last Updated by: Darby Peacock (OB Clinic)MD The patient is crying and quite upset today. She had a panic attack on 10/11/2024 at work. 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 Patient states she is overwhelmed at work. She does not understand why she keeps crying. She states she usually can handle a lot more than this. She is also reporting some right sided carpal tunnel. After her first delivery in [address] Del Castillo she did suffer from with the baby blues but was not on any medication. She states she has not had panic attacks since college. She has never been on antidepressants. She is amendable to trying Lexapro and counseling. We did discuss the fact that one of her colleagues is going to be off soon on maternity leave and the patient is worried that they will increase her caseload. I told her that she needs to discuss this with her supervisor backfilling that she cannot handle any increased caseload at this point. We can try to send her to physical therapy for her carpal tunnel. If counseling and medication do not work we might consider taking the patient off early on disability. Visit Date: 08/27/24 Last Updated by: Darby Peacock (OB Clinic)MD Pt is very tired. Ordered CBC, B12, TSH. 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 Visit Date: 08/06/24 Last Updated by: Darby Peacock (OB Clinic)MD Patient declines NIPT. She had a vacuum delivery with her daughter with Dr. Del Castillo. She had an epidural. She states she pushed a long time. The baby was in the 6 pound range. Office Procedures OB Clinic LOC & Office Proc's Nursing/Assessment Patient Status: Established Patient OB Clinic Nursing Assessment: Medication Reconciliation, Update PMH in EMR and Vital Signs OB Clinic Coordination of Care: Complex Care and Chronic Disease 1-5, Consent,records obtained, informed consent, Education Simp Pt/Fam, Lab and Imaging orders, Results/Orders obtained and Staff clarify orders Special Needs: Heart tones Established Patient Charge Established Patient Point Assignment: 135 Established Patient Point Charge: EP Level 4 (120-155) Assessment & Plan Diagnosis / Problem List (1) Rh negative status during : Status: Acute Qualifiers: Trimester: third trimester Qualified Code(s): O26.893 - Other specified related conditions, third trimester; Z67.91 - Unspecified blood type, Rh negative Plan: Had RhoGAM (2) : Status: Acute Qualifiers: Weeks of gestation: 35 weeks Qualified Code(s): Z3A.35 - 35 weeks gestation of Plan: Follow-up in 2 weeks. Group B strep done size. Size ultrasound scheduled for January 15.
== END 2025-01-05 10:52 | disposition home or self-care (01) ==
LOC: HODSOBC 09:37
PROVIDERS: Supervising Provider Obstetrics & Gynecology; Visit Provider Obstetrics & Gynecology
DX: O09.893 Supervision of other high risk pregnancies, third trimester (principal); Z3A.35 35 weeks gestation of pregnancy; Z67.41 Type O blood, Rh negative; Z36.85 Encounter for antenatal screening for Streptococcus B; Z87.891 Personal history of nicotine dependence; Z87.59 Personal history of other complications of pregnancy, childbirth and the puerperium
CPT/HCPCS: 99214; G0463

== ENCOUNTER 2025-01-12 10:50 | Outpatient (AMB) | payer BC, MEDICAID, SELFPAY ==
[2025-01-12 11:14] VITALS: BP 128/82; PULSE 90; RESP 18; TEMP 36.1; O2SAT 97; BMI 39.8
--- NOTE | 2025-01-12 11:14 | OBCLNT_ITS ---
Vital Signs 01/12/25 11:14 Height 1.7 m Height Method Stated Weight 115.383 kg Weight Measurement Method Standing Scale BMI 39.8 BP 128/82 Blood Pressure Source Automatic Cuff Blood Pressure Location Left Upper Arm Position Sitting Respiration 18 Pulse 90 Pulse Source Monitor Temp 96.9 F Temp Source Oral Pulse Oximetry (%) 97 Oxygen Delivery Method Room Air Allergies/Home Meds Allergies & Medications Allergies No Known Allergies Allergy (Verified 01/12/25 11:28) Medication Reconciliation escitalopram oxalate 10 mg tablet (Lexapro) 10 mg PO QDAY #60 tabs 10/13/24 [Rx Confirmed 01/12/25] vitamins no.115-iron 29 mg-folic acid 1 mg chewable tablet 1 tab PO QDAY 12/25/24 [History Confirmed 01/12/25] Intake Visit Data Collection New Patient or Established: Established Patient (seen at [facility] within 3 years) Reason for Visit:: CARE Seen by Clinical Staff ONLY (RN/MA): No 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 1. Little interest or pleasure in doing things: not at all 2. Feeling down, depressed, or hopeless: not at all Total score: 0 PHQ-9 3. Trouble falling or staying asleep, or sleeping too much: Not at all 4. Feeling tired or having little energy: Not at all 5. Poor appetite or overeating: Not at all 6. Feeling bad about yourself - or that you are a failure or have let yourself or your family down: Not at all 7. Trouble concentrating on things, such as reading the newspaper or watching television: Not at all 8. Moving or speaking so slowly that other people could have noticed? - Or the opposite - being so fidgety or restless that you have been moving around a lot more than usual: not at all 9. Thoughts that you would be better off or of hurting yourself in some way: Not at all Total score: 0 Source: Developed by Drs. Gurjit Bennett, Lis Arvizu, Armaan De Souza and colleagues, with an educational korey from [employer]. Depression screen completed yes Social History Living Situation History Lives With: Family Housing: House Housing Other:: Works at [employer]. Spouse is a textile machine maintenance mechanic. 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-?-?-?-?-?-?-?-?-?-?- 13w 5d 97.125 kg (+125.466 g) 132/78 14 147 Labs reviewed all questions answered. Urine dip glucose negative protein trace. Patient declines NIPT. She feels a little tired and has some round ligament pain but otherwise no complaints. No bleeding no contractions no loss of fluids. 08/27/24 -?-?-?-?-?-?-?-?-?-?-?-?- 16w 5d 100.868 kg (+3867.603 g) 138/81 16 154 active declined NIPT 09/03/24 -?-?-?-?-?-?-?-?-?-?-?-?- 17w 5d 102.739 kg (+5738.671 g) 139/76 137 active Had structural survey ultrasound today. Trying to work overtime. Discussed need for 8 hours of sleep. CBC thyroid B12 all normal. Patient reports good movement no contractions no loss of fluids no 09/24/24 -?-?-?-?-?-?-?-?-?-?-?-?- 20w 5d 105.404 kg (+8403.527 g) 128/82 21 135 active +FM No UC No LOF 10/13/24 -?-?-?-?-?-?-?-?-?-?-?-?- 23w 3d 106.594 kg (+9594.206 g) 120/81 24 143 active +FM, No VB or UCs Spouse and 3 y/o daughter present today 10/31/24 -?-?-?-?-?-?-?-?-?-?-?-?- 26w 0d 109.826 kg (+12.826 kg) 135/83 27 134 active Positive movement no vaginal bleeding or contractions Patient still has bilateral carpal tunnel 11/20/24 -?-?-?-?-?-?-?-?-?-?-?-?- 28w 6d 111.13 kg (+14.13 kg) 126/83 absent unknown 28 145 activ e + FM, denies LOF,VB.UC. here for Rhogam. several concern today. c/o mucous vag discharge, no c/o itching or burning. patient also c/o headache, sees stars sometime and back ache + FM, denies LOF,VB.UC. here for Rhogam. several concern today. c/o mucous vag discharge, no c/o itching or burning. patient also c/o headache, sees stars sometime and back ache. No bleeding.small leukorrhea New swab plus today. I advised patient to continue with Tylenol as she was urged to her last visit. Also patient encouraged to increase fluids. Increase proteins and small frequent meals. With c/o talked about comfort measures for back pain and the use of maternity girdle. Also discussed use salon pass or getting massages. RhoGAM was given today. Patient is to keep her appointment with her OB next visit 12/01/24 -?-?-?-?-?-?-?-?-?-?-?-?- 30w 3d 112.661 kg (+15.661 kg) 133/86 occasional unknown 31 145 active Good movement no contractions no loss of fluids Eze mccullough has severe carpal tunnel and she states her blood pressure has been elevated at home with headaches. History of preeclampsia last . Off work on modified bedrest. 12/22/24 -?-?-?-?-?-?-?-?-?-?-?-?- 33w 3d 114.419 kg (+17.419 kg) 124/87 occasional cephalic 36 145 active Good movement no contractions no loss of fluid Off work due to carpal tunnel. Ultrasound size greater than dates 01/05/25 -?-?-?-?-?-?-?-?-?-?-?-?- 35w 3d 114.929 kg (+17.929 kg) 128/82 occasional cephalic 34 143 active 1 -2 80 Good movement no contractions no loss of fluids Patient pushed a long time and got a vacuum for a 6 pound 8 ounce baby last delivery. Has an ultrasound scheduled January 15 for size. 01/12/25 -?-?-?-?-?-?-?-?-?-?-?-?- 36w 3d 115.383 kg (+18.383 kg) 128/82 occasional cephalic 36 156 active Good movement no contractions no loss of fluid Rashard diaz has cramps and occasional pressure MARIBEL Calculator Estimated Delivery Date Method Current WG Current Estimate 02/06/25 Ultrasound #1 36w 3d Other Estimates 02/08/25 LMP (Certain) 36w 1d Expected Delivery Route/Plan PNC Labs: O-/Ab screen -/ RPR NR/RI/HepBSag-/HIV-/ Urine CX-/1 hour glucose 112 DECLINED NIPT Anticipate . Patient desires epidural. Specific Issue/Plans Vacuum-assisted vaginal delivery last delivery. O- blood type. Had rhogam at 28 weeks Notes Visit Date: 01/12/25 Last Updated by: Darby Peacock (OB Clinic)MD Group B strep negative. Labor precautions. Kick counts. Will check the patient's cervix in 1 week. Visit Date: 01/05/25 Last Updated by: Darby Peacock ([facility] Clinic)MD Group B strep done. Adequate pelvic opening. Suspect patient was too numb last time with pushing . Per patient, she had a very dense epidural. Visit Date: 12/22/24 Last Updated by: Darby Peacock (OB Clinic)MD Schedule ultrasound size greater than dates Pt with VAVD Dr Del Castillo in the past pushed a long time Visit Date: 12/01/24 Last Updated by: Darby Peacock (OB Clinic)MD Note given for off work of 31 weeks secondary to headaches swelling and history of preeclampsia. Patient on modified bedrest and will check her blood pressures. Ultrasound from [facility] obtained from 09/03/2024 baby was 17-5/7-week with an EDC of 02/06/2025 with a normal structural survey and an anterior fundal placenta with no previa. Visit Date: 10/31/24 Last Updated by: Darby Peacock (OB Clinic)MD Order CBC glucose challenge test RPR. No ultrasound from structural survey on chart. Done at [facility]. Visit Date: 10/13/24 Last Updated by: Darby Peacock (OB Clinic)MD The patient is crying and quite upset today. She had a panic attack on 10/11/2024 at work. 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 Patient states she is overwhelmed at work. She does not understand why she keeps crying. She states she usually can handle a lot more than this. She is also reporting some right sided carpal tunnel. After her first delivery in [address] Del Castillo she did suffer from with the baby blues but was not on any medication. She states she has not had panic attacks since college. She has never been on antidepressants. She is amendable to trying Lexapro and counseling. We did discuss the fact that one of her colleagues is going to be off soon on maternity leave and the patient is worried that they will increase her caseload. 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 We can try to send her to physical therapy for her carpal tunnel. If counseling and medication do not work we might consider taking the patient off early on disability. Visit Date: 08/27/24 Last Updated by: Darby Peacock (OB Clinic)MD Pt is very tired. Ordered CBC, B12, TSH. 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 Visit Date: 08/06/24 Last Updated by: Darby Peacock (OB Clinic)MD Patient declines NIPT. She had a vacuum delivery with her daughter with Dr. Del Castillo. She had an epidural. She states she pushed a long time. The baby was in the 6 pound range. Office Procedures OBC Clinic LOC & Office Proc's Nursing/Assessment Patient Status: Established Patient OB Clinic Nursing Assessment: Medication Reconciliation, Update PMH in EMR and Vital Signs OB Clinic Coordination of Care: Complex Care and Chronic Disease 1-5, Consent,records obtained, informed consent, Education Simp Pt/Fam, Lab and Imaging orders, Results/Orders obtained and Staff clarify orders Special Needs: Heart tones Established Patient Charge Established Patient Point Assignment: 135 Established Patient Point Charge: EP Level 4 (120-155) Assessment & Plan Diagnosis / Problem List (1) LGA (large for gestational age) fetus: Status: Acute (2) Rh negative status during : Status: Acute Qualifiers: Trimester: third trimester Qualified Code(s): O26.893 - Other specified related conditions, third trimester; Z67.91 - Unspecified blood type, Rh negative Plan: Patient was given RhoGAM at 28 weeks (3) : Status: Acute Qualifiers: Weeks of gestation: 36 weeks Qualified Code(s): Z3A.36 - 36 weeks gestation of Additional Plan Follow Up: 1 Week
== END 2025-01-12 11:39 | disposition home or self-care (01) ==
LOC: HODSOBC 10:50
PROVIDERS: Supervising Provider Obstetrics & Gynecology; Visit Provider Obstetrics & Gynecology
DX: O09.893 Supervision of other high risk pregnancies, third trimester (principal); O36.63X0 Maternal care for excessive fetal growth, third trimester, not applicable or unspecified; Z67.41 Type O blood, Rh negative; Z3A.36 36 weeks gestation of pregnancy; Z87.891 Personal history of nicotine dependence
CPT/HCPCS: 99214; G0463

== ENCOUNTER → 2025-01-15 | Outpatient (CLI) | payer BC, MEDICAID, SELFPAY ==
--- NOTE | 2025-01-15 09:30 | XR_ITS ---
Examination: Complete OB ultrasound greater than 14 weeks Date and time of exam: January 15, 2025, 0952 hours INDICATIONS: Large for gestational age Findings: Viable intrauterine single fetus with single amniotic sac presentation Vertex spine maternal right. Cardiac motion 148 BPM. Placenta anterior grade 2. Umbilical cord insertion seen. Amniotic fluid index 9.8 cm. Cervix 3.4 cm Ovaries obscured by bowel gas. Composite estimated gestational age based on BPD, head circumference, abdominal circumference, femur length is 36 weeks 1 day Estimated weight 2949.8 g. Survey of intracranial anatomy, spinal anatomy, abdominal anatomy, four-chamber heart performed with no abnormalities identified. Impression: Viable intrauterine gestation vertex presentation.
== END | disposition home or self-care (01) ==
PROVIDERS: PCP Physician Assistant; Referring Provider Obstetrics & Gynecology; Visit Provider Obstetrics & Gynecology
DX: O36.63X0 Maternal care for excessive fetal growth, third trimester, not applicable or unspecified (principal); Z3A.33 33 weeks gestation of pregnancy
CPT/HCPCS: 76805

== ENCOUNTER 2025-01-19 10:04 | Outpatient (AMB) | payer BC, MEDICAID, SELFPAY ==
[2025-01-19 10:16] VITALS: BP 132/86; PULSE 105; RESP 16; TEMP 36.8; O2SAT 97; BMI 40.2
--- NOTE | 2025-01-19 10:16 | AMB.OBVISIT ---
Vital Signs 01/19/25 10:16 Height 1.7 m Height Method Stated Weight 116.233 kg Weight Measurement Method Standing Scale BMI 40.2 BP 132/86 H Blood Pressure Source Automatic Cuff Blood Pressure Location Left Upper Arm Position Sitting Respiration 16 Pulse 105 H Pulse Source Monitor Temp 98.2 F Temp Source Oral Pulse Oximetry (%) 97 Oxygen Delivery Method Room Air Allergies/Home Meds Allergies & Medications Allergies No Known Allergies Allergy (Verified 01/19/25 10:17) Medication Reconciliation escitalopram oxalate 10 mg tablet (Lexapro) 10 mg PO QDAY #60 tabs 10/13/24 [Rx Confirmed 01/19/25] vitamins no.115-iron 29 mg-folic acid 1 mg chewable tablet 1 tab PO QDAY 12/25/24 [History Confirmed 01/19/25] Intake Visit Data Collection New Patient or Established: Established Patient (seen at [facility] within 3 years) Reason for Visit:: OBC Seen by Clinical Staff ONLY (RN/MA): No Radiologic Technologist Required: No Do You Feel Safe at Home: Yes Authorities Contacted: N/A PCP or OBGYN visit in last 3 months: Yes Date of Last PCP or OBGYN visit: 01/12/25 Hx Now: Yes Are you currently on any form of Control: No Pain Present Currently: No Pain Scale Used: Hahn-Magana/Numerical Pain scale:: 0 Smoking Status Smoking Status: Former smoker Questionnaires Covid-19 Vaccine Questionnaire Has patient been vacinated for Covid-19 Have you been vacinated for Covid-19: No PHQ-9 PHQ-2 Over the last 2 weeks, how often have you been bothered by any of the following problems? 1. Little interest or pleasure in doing things: not at all 2. Feeling down, depressed, or hopeless: not at all Total score: 0 PHQ-9 3. Trouble falling or staying asleep, or sleeping too much: Not at all 4. Feeling tired or having little energy: Not at all 5. Poor appetite or overeating: Not at all 6. Feeling bad about yourself - or that you are a failure or have let yourself or your family down: Not at all 7. Trouble concentrating on things, such as reading the newspaper or watching television: Not at all 8. Moving or speaking so slowly that other people could have noticed? - Or the opposite - being so fidgety or restless that you have been moving around a lot more than usual: not at all 9. Thoughts that you would be better off or of hurting yourself in some way: Not at all Total score: 0 If you checked off any problems, how difficult have these problems made it for you to do your work, take care of things at home, or get along with other people?: not difficult at all Source: Developed by Drs. Gurjit Bennett, Lis Arvizu, Armaan De Souza and colleagues, with an educational korey from [employer]. Depression screen completed yes Social History Living Situation History Lives With: Family Housing: House Housing Other:: Works at [employer]. Spouse is a aircraft mechanic electrical and radio. 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: Yes [facility]: Past Medical History Past Medical History: No Hx Neurological Disorders, No Hx Hypothyroidism, No Hx Hyperthyroidism, No Hx Cardiac Disorders, No Hx Cancer, No Hx Blood Disorders, No Hx Anemia, No Hx Gastrointestinal Disorders, No Hx Renal Disease, No Hx Diabetes Mellitus Type 1, No Hx Diabetes Mellitus Type 2 and No Hx Polycystic Ovarian Syndrome Care OB Visit Log OB Flowsheet Initial Weight: 97 kg Date <del>?</del> EGA Weight BP Alb Glu CTX Pres Fundal ht FHR Mov Dilation Station Effacement Hx Notes Visit Note 07/01/24 <del>?</del> 8w 4d 95.254 kg (-1745.603 g) 135/76 135 08/06/24 <del>?</del> 13w 5d 97.125 kg (+125.466 g) 132/78 14 147 Labs reviewed all questions answered. Urine dip glucose negative protein trace. Patient declines NIPT. She feels a little tired and has some round ligament pain but otherwise no complaints. No bleeding no contractions no loss of fluids. 08/27/24 <del>?</del> 16w 5d 100.868 kg (+3867.603 g) 138/81 16 154 active declined NIPT 09/03/24 <del>?</del> 17w 5d 102.739 kg (+5738.671 g) 139/76 137 active Had structural survey ultrasound today. Trying to work overtime. Discussed need for 8 hours of sleep. CBC thyroid B12 all normal. Patient reports good movement no contractions no loss of fluids no 09/24/24 <del>?</del> 20w 5d 105.404 kg (+8403.527 g) 128/82 21 135 active +FM No UC No LOF 10/13/24 <del>?</del> 23w 3d 106.594 kg (+9594.206 g) 120/81 24 143 active +FM, No VB or UCs Spouse and 3 y/o daughter present today 10/31/24 <del>?</del> 26w 0d 109.826 kg (+12.826 kg) 135/83 27 134 active Positive movement no vaginal bleeding or contractions Patient still has bilateral carpal tunnel 11/20/24 <del>?</del> 28w 6d 111.13 kg (+14.13 kg) 126/83 absent unknown 28 145 active + FM, denies LOF,VB.UC. here for Rhogam. several concern today. c/o mucous vag discharge, no c/o itching or burning. patient also c/o headache, sees stars sometime and back ache + FM, denies LOF,VB.UC. here for Rhogam. several concern today. c/o mucous vag discharge, no c/o itching or burning. patient also c/o headache, sees stars sometime and back ache. No bleeding.small leukorrhea New swab plus today. I advised patient to continue with Tylenol as she was urged to her last visit. Also patient encouraged to increase fluids. Increase proteins and small frequent meals. With c/o talked about comfort measures for back pain and the use of maternity girdle. Also discussed use salon pass or getting massages. RhoGAM was given today. Patient is to keep her appointment with her OB next visit 12/01/24 <del>?</del> 30w 3d 112.661 kg (+15.661 kg) 133/86 occasional unknown 31 145 active Good movement no contractions no loss of fluids Patient has severe carpal tunnel and she states her blood pressure has been elevated at home with headaches. History of preeclampsia last . Off work on modified bedrest. 12/22/24 <del>?</del> 33w 3d 114.419 kg (+17.419 kg) 124/87 occasional cephalic 36 145 active Good movement no contractions no loss of fluid Off work due to carpal tunnel. Ultrasound size greater than dates 01/05/25 <del>?</del> 35w 3d 114.929 kg (+17.929 kg) 128/82 occasional cephalic 34 143 active 1 -2 80 Good movement no contractions no loss of fluids Patient pushed a long time and got a vacuum for a 6 pound 8 ounce baby last delivery. Has an ultrasound scheduled January 15 for size. 01/12/25 <del>?</del> 36w 3d 115.383 kg (+18.383 kg) 128/82 occasional cephalic 36 156 active Good movement no contractions no loss of fluid Patient has cramps and occasional pressure 01/19/25 <del>?</del> 37w 3d 116.233 kg (+19.233 kg) 132/86 occasional cephalic 36 145 active 1 -2 70 The patient reports good movement. Occasional contractions no loss of fluids. Had an ultrasound revealing vertex presentation 2949 g which is about 6 pounds 5 ounces SUMMER at 9.8. 8 pound baby at her due date. Last baby was 6 pounds 11 ounces born via vacuum secondary to prolonged pushing. MARIBEL Calculator Estimated Delivery Date Method Current WG Current Estimate 02/06/25 Ultrasound #1 37w 3d Other Estimates 02/08/25 LMP (Certain) 37w 1d Expected Delivery Route/Plan [facility] Labs: O-/Ab screen -/ RPR NR/RI/HepBSag-/HIV-/ Urine CX-/1 hour glucose 112 DECLINED NIPT Anticipate . Patient desires epidural. Specific Issue/Plans Vacuum-assisted vaginal delivery last delivery. O- blood type. Had rhogam at 28 weeks Notes Visit Date: 01/19/25 Last Updated by: Darby Peacock (OB Clinic)MD Group Bahndari strep negative. Labor precautions. Kick counts. Follow-up 1 week. Visit Date: 01/12/25 Last Updated by: Darby Peacock (OB Clinic)MD Group Bhandari strep negative. Labor precautions. Kick counts. Will check the patient's cervix in 1 week. Visit Date: 01/05/25 Last Updated by: Darby Peacock (OB Clinic)MD Group Bhandari strep done. Adequate pelvic opening. Suspect patient was too numb last time with pushing . Per patient, she had a very dense epidural. Visit Date: 12/22/24 Last Updated by: Darby Peacock (OB Clinic)MD Schedule ultrasound size greater than dates Pt with VAVD Dr Del Castillo in the past pushed a long time Visit Date: 12/01/24 Last Updated by: Darby Peacock (OB Clinic)MD Note given for off work of 31 weeks secondary to headaches swelling and history of preeclampsia. Patient on modified bedrest and will check her blood pressures. Ultrasound from [place] [facility] obtained from 09/03/2024 baby was 17-5/7-week with an EDC of 02/06/2025 with a normal structural survey and an anterior fundal placenta with no previa. Visit Date: 10/31/24 Last Updated by: Darby Peacock (OB Clinic)MD Order CBC glucose challenge test RPR. No ultrasound from structural survey on chart. Done at [facility]. Visit Date: 10/13/24 Last Updated by: Darby Peacock (OB Clinic)MD The patient is crying and quite upset today. She had a panic attack on 10/11/2024 at work. 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 Patient states she is overwhelmed at work. She does not understand why she keeps crying. She states she usually can handle a lot more than this. She is also reporting some right sided carpal tunnel. After her first delivery in [address] Del Castillo she did suffer from with the baby blues but was not on any medication. She states she has not had panic attacks since college. She has never been on antidepressants. She is amendable to trying Lexapro and counseling. We did discuss the fact that one of her colleagues is going to be off soon on maternity leave and the patient is worried that they will increase her caseload. 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 We can try to send her to physical therapy for her carpal tunnel. If counseling and medication do not work we might consider taking the patient off early on disability. Visit Date: 08/27/24 Last Updated by: Darby Peacock (OB Clinic)MD Pt is very tired. Ordered CBC, B12, TSH. 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 Visit Date: 08/06/24 Last Updated by: Darby Peacock (OB Clinic)MD Patient declines NIPT. She had a vacuum delivery with her daughter with Dr. Del Castillo. She had an epidural. She states she pushed a long time. The baby was in the 6 pound range. Office Procedures OBC Clinic LOC & Office Proc's Nursing/Assessment Patient Status: Established Patient OB Clinic Nursing Assessment: Medication Reconciliation, Update PMH in EMR and Vital Signs OB Clinic Coordination of Care: Education Complex Pt/Fam, Consent,records obtained, informed consent, Lab and Imaging orders, Results/Orders obtained and Staff clarify orders Special Needs: Heart tones Established Patient Charge Established Patient Point Assignment: 115 Established Patient Point Charge: EP Level 3 (80-115) Assessment & Plan Diagnosis / Problem List (1) : Status: Acute Qualifiers: Weeks of gestation: 37 weeks Qualified Code(s): Z3A.37 - 37 weeks gestation of (2) Rh negative status during : Status: Acute Qualifiers: Trimester: third trimester Qualified Code(s): O26.893 - Other specified related conditions, third trimester; Z67.91 - Unspecified blood type, Rh negative Additional Plan Follow Up: 1 Week
== END 2025-01-19 10:54 | disposition home or self-care (01) ==
LOC: HODSOBC 10:04
PROVIDERS: Supervising Provider Obstetrics & Gynecology; Visit Provider Obstetrics & Gynecology
DX: O09.893 Supervision of other high risk pregnancies, third trimester (principal); Z67.41 Type O blood, Rh negative; Z3A.37 37 weeks gestation of pregnancy; Z87.891 Personal history of nicotine dependence
CPT/HCPCS: 99213; G0463

== ENCOUNTER 2025-01-30 13:50 | Outpatient (AMB) | payer BC, MEDICAID, SELFPAY ==
[2025-01-30 14:05] VITALS: BP 136/83; PULSE 100; RESP 18; TEMP 36.2; O2SAT 97; BMI 39.4
--- NOTE | 2025-01-30 14:05 | OBCLNT_ITS ---
Vital Signs 01/30/25 14:05 Height 1.73 m Height Method Measured Weight 117.934 kg Weight Measurement Method Standing Scale BMI 39.4 BP 136/83 H Blood Pressure Source Automatic Cuff Blood Pressure Location Left Upper Arm Position Sitting Respiration 18 Pulse 100 Pulse Source Monitor Temp 97.2 F Temp Source Oral Pulse Oximetry (%) 97 Oxygen Delivery Method Room Air Allergies/Home Meds Allergies & Medications Allergies No Known Allergies Allergy (Verified 01/31/25 19:57) Medication Reconciliation vitamins no.115-iron 29 mg-folic acid 1 mg chewable tablet 1 tab PO QDAY 12/25/24 [History Confirmed 01/31/25] Intake Visit Data Collection New Patient or Established: Established Patient (seen at [facility] within 3 years) Reason for Visit:: OBC REPAEAT BP WAS 136/83 FIRST BP 150/87 Seen by Clinical Staff ONLY (RN/MA): No Mule Spinner Required: No Do You Feel Safe at Home: Yes Authorities Contacted: N/A PCP or OBGYN visit in last 3 months: Yes Date of Last PCP or OBGYN visit: 01/19/25 Hx Now: Yes Are you currently on any form of Control: No Pain Present Currently: No Pain Location: Mouth Pain Scale Used: Hahn-Magana/Numerical Pain scale:: 0 Smoking Status Smoking Status: Former smoker Questionnaires Covid-19 Vaccine Questionnaire Has patient been vacinated for Covid-19 Have you been vacinated for Covid-19: Yes PHQ-9 PHQ-2 Over the last 2 weeks, how often have you been bothered by any of the following problems? 1. Little interest or pleasure in doing things: not at all 2. Feeling down, depressed, or hopeless: not at all Total score: 0 PHQ-9 3. Trouble falling or staying asleep, or sleeping too much: Not at all 4. Feeling tired or having little energy: Not at all 5. Poor appetite or overeating: Not at all 6. Feeling bad about yourself - or that you are a failure or have let yourself or your family down: Not at all 7. Trouble concentrating on things, such as reading the newspaper or watching television: Not at all 8. Moving or speaking so slowly that other people could have noticed? - Or the opposite - being so fidgety or restless that you have been moving around a lot more than usual: not at all 9. Thoughts that you would be better off or of hurting yourself in some way: Not at all Total score: 0 If you checked off any problems, how difficult have these problems made it for you to do your work, take care of things at home, or get along with other people?: not difficult at all Source: Developed by Drs. Gurjit Bennett, Lis Arvizu, Armaan De Souza and colleagues, with an educational korey from [employer]. Depression screen completed yes Social History Living Situation History Marital Status: Single Lives With: Family Housing: House Housing Other:: Works at [employer]. Spouse is a edge trimmer mechanic. 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: Past Medical History Past Medical History: No Hx Neurological Disorders, No Hx Hypothyroidism, No Hx Hyperthyroidism, No Hx Cardiac Disorders, No Hx Cancer, No Hx Blood Disorders, No Hx Anemia, No Hx Gastrointestinal Disorders, No Hx Renal Disease, No Hx Diabetes Mellitus Type 1, No Hx Diabetes Mellitus Type 2 and No Hx Polycystic Ovarian Syndrome Care OB Visit Log OB Flowsheet Initial Weight: 97 kg Date -?-?-?-?-?-?-?-?-?-?-?-?- EGA Weight BP Alb Glu CTX Pres Fundal ht FHR Mov Dilation Station Effacement Hx Notes Visit Note 07/01/24 -?-?-?-?-?-?-?-?-?-?-?-?- 8w 4d 95.254 kg (-1745.603 g) 135/76 135 08/06/24 -?-?-?-?-?--?-?-?-?-?-?-?- 13w 5d 97.125 kg (+125.466 g) 132/78 14 147 Labs reviewed all questions answered. Urine dip glucose negative protein trace. Patient declines NIPT. She feels a little tired and has some round ligament pain but otherwise no complaints. No bleeding no contractions no loss of fluids. 08/27/24 -?-?-?-?-?-?-?-?-?-?-?-?- 16w 5d 100.868 kg (+3867.603 g) 138/81 16 154 active declined NIPT 09/03/24 -?-?-?-?-?-?-?-?--?-?-?-?- 17w 5d 102.739 kg (+5738.671 g) 139/76 137 active Had structural survey ultrasound today. Trying to work overtime. Discussed need for 8 hours of sleep. CBC thyroid B12 all normal. Patient reports good movement no contractions no loss of fluids no 09/24/24 -?-?-?-?-?-?-?-?-?-?-?-?- 20w 5d 105.404 kg (+8403.527 g) 128/82 21 135 active +FM No UC No LOF 10/13/24 -?-?-?-?-?-?-?-?-?-?-?-?- 23w 3d 106.594 kg (+9594.206 g) 120/81 24 143 active +FM, No VB or UCs Spouse and 3 y/o daughter present today 10/31/24 -?-?-?-?-?-?-?-?-?--?-?-?- 26w 0d 109.826 kg (+12.826 kg) 135/83 27 134 active Positive movement no vaginal bleeding or contractions Patient still has bilateral carpal tunnel 11/20/24 -?-?-?-?-?-?-?-?-?-?-?-?- 28w 6d 111.13 kg (+14.13 kg) 126/83 absent unknown 28 145 activ e + FM, denies LOF,VB.UC. here for Rhogam. several concern today. c/o mucous vag discharge, no c/o itching or burning. patient also c/o headache, sees stars sometime and back ache + FM, denies LOF,VB.UC. here for Rhogam. several concern today. c/o mucous vag discharge, no c/o itching or burning. patient also c/o headache, sees stars sometime and back ache. No bleeding.small leukorrhea New swab plus today. I advised patient to continue with Tylenol as she was urged to her last visit. Also patient encouraged to increase fluids. Increase proteins and small frequent meals. With c/o talked about comfort measures for back pain and the use of maternity girdle. Also discussed use salon pass or getting massages. RhoGAM was given today. Patient is to keep her appointment with her OB next visit 12/01/24 -?-?-?-?-?-?-?-?-?-?-?-?- 30w 3d 112.661 kg (+15.661 kg) 133/86 occasional unknown 31 145 active Good movement no contractions no loss of fluids Eze mccullough has severe carpal tunnel and she states her blood pressure has been elevated at home with headaches. History of pre eclampsia last . Off work on modified bedrest. 12/22/24 -?-?-?-?-?-?-?-?-?-?-?-?- 33w 3d 114.419 kg (+17.419 kg) 124/87 occasional cephalic 36 145 active Good movement no contractions no loss of fluid Off work due to carpal tunnel. Ultrasound size greater than dates 01/05/25 -?-?-?-?--?-?-?-?-?-?-?-?- 35w 3d 114.929 kg (+17.929 kg) 128/82 occasional cephalic 34 143 active 1 -2 80 Good movement no contractions no loss of fluids Patient pushed a long time and got a vacuum for a 6 pound 8 ounce baby last delivery. Has an ultrasound scheduled January 15 for size. 01/12/25 -?-?-?-?-?-?-?-?-?-?-?--?- 36w 3d 115.383 kg (+18.383 kg) 128/82 occasional cephalic 36 156 active Good movement no contractions no loss of fluid Rashard diaz has cramps and occasional pressure 01/19/25 -?-?-?-?-?-?-?-?-?-?-?-?- 37w 3d 116.233 kg (+19.233 kg) 132/86 occasional cephalic 36 145 active 1 -2 70 The patient reports good movement. Occasional contractions no loss of fluids. Had an ultrasound revealing vertex presentation 2949 g which is about 6 pounds 5 ounces SUMMER at 9.8. 8 pound baby at her due date. Last baby was 6 pounds 11 ounces born via vacuum secondary to prolonged pushing. 01/30/25 -?-?-?-?-?-?-?-?-?-?-?-?- 39w 0d 117.934 kg (+20.934 kg) 136/83 occasional cephalic 38 145 active 2 -2 70 Good FM, No UCs or VB Kick counts, lab or precautions MARIBEL Calculator Estimated Delivery Date Method Current WG Current Estimate 02/06/25 Ultrasound #1 39w 5d Other Estimates 02/08/25 LMP (Certain) 39w 3d Expected Delivery Route/Plan PN Labs: O-/Ab screen -/ RPR NR/RI/HepBSag-/HIV-/ Urine CX-/1 hour glucose 112 DECLINED NIPT Anticipate . Patient desires epidural. Specific Issue/Plans Vacuum-assisted vaginal delivery last delivery. O- blood type. Had rhogam at 28 weeks Notes Visit Date: 01/30/25 Last Updated by: Darby Peacock (OB Clinic)MD Consider IOL by due date due to hx VAVD after a long second stage Visit Date: 01/19/25 Last Updated by: Darby Peacock (OB Clinic)MD Group Bhandari strep negative. Labor precautions. Kick counts. Follow-up 1 week. Visit Date: 01/12/25 Last Updated by: Darby Mao[facility])MD Group Bhandari strep negative. Labor precautions. Kick counts. Will check the patient's cervix in 1 week. Visit Date: 01/05/25 Last Updated by: Darby Peacock (OB Clinic)MD Group Bhandari strep done. Adequate pelvic opening. Suspect patient was too numb last time with pushing . Per patient, she had a very dense epidural. Visit Date: 12/22/24 Last Updated by: Darby Peacock (OB Clinic)MD Schedule ultrasound size greater than dates Pt with VAVD Dr Del Castillo in the past pushed a long time Visit Date: 12/01/24 Last Updated by: Darby Peacock (OB Clinic)MD Note given for off work of 31 weeks secondary to headaches swelling and history of preeclampsia. Patient on modified bedrest and will check her blood pressures. Ultrasound from [place] [facility] obtained from 09/03/2024 baby was 17-5/7-week with an EDC of 02/06/2025 with a normal structural survey and an anterior fundal placenta with no previa. Visit Date: 10/31/24 Last Updated by: Darby Peacock (OB Clinic)MD Order CBC glucose challenge test RPR. No ultrasound from structural survey on chart. Done at [facility]. Visit Date: 10/13/24 Last Updated by: Darby Peacock (OB Clinic)MD The patient is crying and quite upset today. She had a panic attack on 10/11/2024 at work. 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 Patient states she is overwhelmed at work. She does not understand why she keeps crying. She states she usually can handle a lot more than this. She is also reporting some right sided carpal tunnel. After her first delivery in [address] Del Castillo she did suffer from with the baby blues but was not on any medication. She states she has not had panic attacks since college. She has never been on antidepressants. She is amendable to trying Lexapro and counseling. We did discuss the fact that one of her colleagues is going to be off soon on maternity leave and the patient is worried that they will increase her caseload. 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 We can try to send her to physical therapy for her carpal tunnel. If counseling and medication do not work we might consider taking the patient off early on disability. Visit Date: 08/27/24 Last Updated by: Darby Peacock (OB Clinic)MD Pt is very tired. Ordered CBC, B12, TSH. 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 Visit Date: 08/06/24 Last Updated by: Darby Peacock (OB Clinic)MD Patient declines NIPT. She had a vacuum delivery with her daughter with Dr. Del Castillo. She had an epidural. She states she pushed a long time. The baby was in the 6 pound range. Office Procedures OBC Clinic LOC & Office Proc's Nursing/Assessment Patient Status: Established Patient OB Clinic Nursing Assessment: Medication Reconciliation, Update PMH in EMR and Vital Signs OB Clinic Coordination of Care: Consent,records obtained, informed consent, Lab and Imaging orders, Results/Orders obtained and Staff clarify orders Special Needs: Heart tones Miscellaneous Interventions: Pelvic no cultures Established Patient Charge Established Patient Point Assignment: 105 Established Patient Point Charge: EP Level 3 (80-115) Assessment & Plan Diagnosis / Problem List (1) : Status: Acute Qualifiers: Weeks of gestation: 39 weeks Qualified Code(s): Z3A.39 - 39 weeks gestation of (2) Rh negative status during : Status: Acute Qualifiers: Trimester: third trimester Qualified Code(s): O26.893 - Other specified related conditions, third trimester; Z67.91 - Unspecified blood type, Rh negative
== END 2025-01-30 14:18 | disposition home or self-care (01) ==
LOC: HODSOBC 13:50
PROVIDERS: Supervising Provider Obstetrics & Gynecology; Visit Provider Obstetrics & Gynecology
DX: O09.893 Supervision of other high risk pregnancies, third trimester (principal); Z67.41 Type O blood, Rh negative; Z3A.39 39 weeks gestation of pregnancy
CPT/HCPCS: 99213; G0463

== ENCOUNTER 2025-01-30 14:34 | Outpatient (CLI) | payer BC, MEDICAID, SELFPAY ==
[2025-01-30] VITALS (8 sets, daily range): BP systolic 128–133; BP diastolic 76–81; PULSE 94–110; RESP 18–99; TEMP 36.6; O2SAT 94–98; BMI 40.5
--- NOTE | 2025-01-30 14:44 | XR_ITS ---
Examination: Complete OB ultrasound greater than 14 weeks Date and time of exam: January 30, 2025, 1520 hours INDICATIONS: High blood pressure and pelvic cramping at the doctor's office today diagnosis preeclampsia Findings: Viable intrauterine single fetus with single amniotic sac presentation cephalic spine maternal left Cardiac motion 136 bpm Placenta anterior grade 2 Umbilical cord insertion seen Amniotic fluid index 10.2 cm Cervix 3.1 cm Ovaries obscured by bowel gas. Composite estimated gestational age based on BPD, head circumference, abdominal circumference, femur length is 37 weeks 2 days Estimated weight 3256.3 g. Survey of intracranial anatomy, spinal anatomy, abdominal anatomy, four-chamber heart performed with no abnormalities identified. Impression: Viable intrauterine gestation in cephalic presentation.
[2025-01-30 15:22] LABS: Collection Type, Urine Clean Catch
[2025-01-30 15:24] LABS: Basophils # (Auto) 0.1 Thou/mm3 (0.0-0.2); Basophils % (Auto) 0 % (0-2.5); Eosinophils # (Auto) 0.1 Thou/mm3 (0.0-0.5); Eosinophils % (Auto) 1 % (0-10); Hematocrit 35.5 % (36.0-46.0); Hemoglobin 12.4 g/dL (12.0-16.0); Immature Granulocytes Auto 0.15 Thou/mm3 (0.00-0.00); Lymphocytes # (Auto) 2.0 Thou/mm3 (1.0-4.8); Lymphocytes % (Auto) 14 % (10-50); Mean Corpuscular HGB Conc 34.9 g/dl (31.0-37.0); Mean Corpuscular Hemoglobin 30.0 pg (25.0-35.0); Mean Corpuscular Volume 86 fL (80-100); Monocytes # (Auto) 0.7 Thou/mm3 (0.0-0.8); Monocytes % (Auto) 5 % (0-12); Neutrophils # (Auto) 11.3 Thou/mm3 (1.8-7.7); Neutrophils % (Auto) 79 % (37-80); Nucleated Red Blood Cell # 0.00 Thou/mm3 (0.00-0.00); Nucleated Red Blood Cell % 0 /100 WBC (0); Platelet Count 240 Thou/mm3 (140-440); RDW Standard Deviation 41.0 fL (36.4-46.3); Red Blood Count 4.14 Miln/mm3 (4.00-5.20); White Blood Count 14.3 Thou/mm3 (3.6-11.0)
[2025-01-30 15:38] LABS: Creatinine,Random Urine 168 mg/dL (30-125); Protein Total, Random Urine 70 mg/dL (1-14)
[2025-01-30 15:42] LABS: Bilirubin,Urine Negative (Negative); Blood,Urine 3+ (Negative); Color,Urine Yellow (Lt Yel-Yel); Glucose, Urine Negative (Negative); Ketones,Urine Negative (Negative); Leukocyte Esterase,Urine Positive (Negative); Nitrite,Urine Negative (Negative); PH,Urine 6.0 (5.0-7.0); Protein,Urine 1+ (Neg - Trace); RBC,Urine 798 /hpf (0-3); Specific Gravity,Urine 1.031 (1.001-1.035); Squamous Epithelial Cell,Urine 22 /hpf (0-5); Urobilinogen,Urine Negative mg/dL (0.0-1.0); WBC,Urine 20 /hpf (0-5)
[2025-01-30 15:44] LABS: Clarity,Urine Hazy (Clear/Hazy)
[2025-01-30 15:56] LABS: Alanine Aminotransferase < 7 U/L (10-49); Albumin, Serum 3.9 gm/dL (3.5-5.0); Albumin/Globulin Ratio 1.6 (1.2-2.2); Alkaline Phosphatase 94 U/L (46-116); Anion Gap 14 (7-16); Aspartate Amino Transferase 15 U/L (0-34); BUN/Creatinine Ratio 12 Ratio (12-20); Bilirubin,Total 0.2 mg/dL (0.3-1.2); Blood Urea Nitrogen 7 mg/dL (9-23); Calcium 8.8 mg/dL (8.3-10.6); Calcium (Corrected) 8.9 mg/dL (8.5-10.1); Carbon Dioxide 19.0 mMol/L (20.0-31.0); Chloride 107 mMol/L (98-107); Creatinine (Component) 0.6 mg/dL (0.6-1.3); Estimated Creatinine Clearance 185.0 mL/min (>60); Globulin 2.5 gm/dL (2.3-3.5); Glucose 110 mg/dL (74-106); LDH (Lactate Dehydrogenase) 171 U/L (120-246); Osmolality,Calculated 278 (275-295); Potassium 4.1 mMol/L (3.4-5.1); Sodium 140 mMol/L (136-145); Total Protein 6.4 gm/dL (5.7-8.2); Uric Acid 5.3 mg/dL (3.1-7.8); eGFR > 60 See Note
[2025-01-30 16:11] LABS: Fibrinogen 532 mg/dL (175-375); INR 0.9 (0.9-1.3); Partial Thromboplastin Time 24.8 Seconds (22.0-36.0); Prothrombin Time 9.8 Seconds (9.0-12.2)
== END 2025-01-30 16:25 | disposition home or self-care (01) ==
LOC: S4S1 14:35 → S4SX 14:35
PROVIDERS: Referring Provider Obstetrics & Gynecology; Visit Provider Obstetrics & Gynecology
DX: Z34.83 Encounter for supervision of other normal pregnancy, third trimester (principal); Z36.89 Encounter for other specified antenatal screening; Z3A.39 39 weeks gestation of pregnancy
CPT/HCPCS: 36415; 59025; 76805; 80053; 81001; 82570; 83615; 84156; 84550; 85025; 85384; 85610; 85730

== ENCOUNTER 2025-01-31 19:47 | Inpatient (IN) | payer BC, MEDICAID, SELFPAY ==
[2025-01-31] VITALS (64 sets, daily range): BP systolic 134–171; BP diastolic 63–98; PULSE 78–117; RESP 17–99; TEMP 36.9–37.2; O2SAT 97–100; BMI 40.8
[2025-01-31 20:33] LABS: ROM Kit Exp Date# 04/11/28; ROM Kit Lot # 58106258; ROM Swab Mixed By: ANGUM; Rupture of Fetal Membranes Positive (Negative); Swb Mxed in Solvent 1 min? Yes
[2025-01-31 21:14] LABS: Basophils # (Auto) 0.0 Thou/mm3 (0.0-0.2); Basophils % (Auto) 0 % (0-2.5); Eosinophils # (Auto) 0.1 Thou/mm3 (0.0-0.5); Eosinophils % (Auto) 0 % (0-10); Hematocrit 34.3 % (36.0-46.0); Hemoglobin 12.1 g/dL (12.0-16.0); Immature Granulocytes Auto 0.22 Thou/mm3 (0.00-0.00); Lymphocytes # (Auto) 2.6 Thou/mm3 (1.0-4.8); Lymphocytes % (Auto) 16 % (10-50); Mean Corpuscular HGB Conc 35.3 g/dl (31.0-37.0); Mean Corpuscular Hemoglobin 30.0 pg (25.0-35.0); Mean Corpuscular Volume 85 fL (80-100); Monocytes # (Auto) 0.9 Thou/mm3 (0.0-0.8); Monocytes % (Auto) 6 % (0-12); Neutrophils # (Auto) 12.6 Thou/mm3 (1.8-7.7); Neutrophils % (Auto) 77 % (37-80); Nucleated Red Blood Cell # 0.00 Thou/mm3 (0.00-0.00); Nucleated Red Blood Cell % 0 /100 WBC (0); Platelet Count 250 Thou/mm3 (140-440); RDW Standard Deviation 41.2 fL (36.4-46.3); Red Blood Count 4.03 Miln/mm3 (4.00-5.20); White Blood Count 16.4 Thou/mm3 (3.6-11.0)
[2025-01-31] MEDS: RINGERS LACTATED 1000 ML 1,000 ML 125 ML IV (21:58)
[2025-01-31 22:16] LABS: Syphilis Nonreactive (Nonreactive)
[2025-02-01] VITALS (109 sets, daily range): BP systolic 96–188; BP diastolic 51–98; PULSE 50–147; RESP 16–19; TEMP 36.6–37.1; O2SAT 86–100
[2025-02-01] MEDS: OXYTOCIN in NS 30 units 30 UNIT/500 ML BAG IV (03:05)
[2025-02-01] MEDS: OXYTOCIN in NS 20 units 20 UNIT/1,000 ML BAG 125 UNIT IV (05:08)
--- NOTE | 2025-02-01 05:33 | ESHP_ITS ---
Documentation for date of: 02/01/25 OB Labor/Induct. HPI History of Present Illness Chief complaint: Early labor : 3 Para: 2 Term pregnancies: 1 pregnancies: 0 Living children: 1 History of Abortions: Spontaneous and Elective: 0 History of Vaginal deliveries: 1 History of sections: No History of : No Date of last menstrual period: 05/04/24 MARIBEL: 02/06/25 Gestational Age (weeks): 39 Gestational Age (days): 2 Gestational age based on last menstrual period: 39 History of present illness: 30-year-old -0-1-1 at 39 weeks and 1 day estimated due date 02/06/2025 who received care at the [facility] FIELD REPRESENTATIVE clinic presented to labor and delivery triage with contractions. On exam she was noted to be 4 cm dilated. Prior to that patient was sent in from the office yesterday due to concerns with elevated blood pressures send of preeclampsia evaluation was done and was negative. Patient has a history of being induced at 37 weeks due to preeclampsia in her prior . She has Rh- blood type History of Present Adequate Care: Yes Labs Labs: Positive: Rubella Titre, Negative: RPR, Hepatitis B, HIV, Chlamydia, Gonorrhea and Group Beta Strep and Unknown: Herpes Type 1, Herpes Type 2 and Covid-19 Past Medical History Surgical History SURGICAL: Negative Section Meds Home Medications and Allergies Home Medications ?Medication ?Instructions ?Recorded ?Confirmed ?Type vitamins no.115-iron 29 1 tab PO QDAY 5 01/31/25 History mg-folic acid 1 mg chewable tablet Allergies Allergy/AdvReac Type Severity Reaction Status Date / Time No Known Allergies Allergy Verified 01/31/25 19:57 OB Exam Physical Exam Vital signs: Temp Pulse Resp BP Pulse Ox 98.7 F 116 H 18 150/66 H 100 02/01/25 02:24 02/01/25 05:29 02/01/25 02:24 02/01/25 05:29 02/01/25 05:31 Constitutional Constitutional: no acute distress Routine HEENT Exam Head: Present normocephalic and atraumatic Eye: Present EOMI and PERRL ENT: Present mucous membranes moist Routine Neck Exam Neck: Present supple and trachea midline Routine Cardiovascular Exam Cardiovascular: Present RRR Routine Abdominal Exam Abdominal: Present soft and normoactive bowel sounds Detailed Labor and Delivery Exam Dilation (cm): 4 Effacement (%): 50 Cervix position: mid station: -2 Consistency: soft Presentation: Vertex Routine Extremities Exam Extremities: Present full ROM Routine Skin Exam Skin: Present intact, dry and warm Routine Neurological Exam Neurological: Present alert, oriented X3 and CN II-XII intact Routine Psychiatric Exam Psychiatric: Present normal affect and normal thought process OB Results Labs 01/31/25 20:55 Labs: Short CBC 01/31/25 Range/Units 20:55 WBC 16.4 H (3.6-11.0) Thou/mm3 Hgb 12.1 (12.0-16.0) g/dL Hct 34.3 L (36.0-46.0) % Plt Count 250 (140-440) Thou/mm3 OB Assessment & Plan Assessment and Plan (1) High risk case management patient in third trimester: Status: Acute (2) Rh negative status during : Status: Acute (3) Active labor at term: Status: Acute Assessment and plan: Admit to inpatient labor and delivery IV access, LR 125 cc/h, labs to include CBC RPR type and screen Continuous maternal monitoring epidural when desired GBS negative Expectant management for now, oxytocin augmentation if contractions spaced out Anticipate vaginal delivery (2) Rh negative status during Qualifiers: Trimester: third trimester Qualified Code(s): O26.893 - Other specified related conditions, third trimester; Z67.91 - Unspecified blood type, Rh negative
[2025-02-01] MEDS: TRANEXAMIC ACID 1,000 MG IVPB 1,000 MG/100 ML BAG 200 MG IV (05:43)
[2025-02-01] MEDS: BENZO/LANO/ALOE (Dermoplast) 60 GM CAN 1 SPRAY TOP (08:00)
[2025-02-01] MEDS: IBUPROFEN TAB 400 MG TABLET 800 MG PO ×2 (08:11→20:16)
[2025-02-01] MEDS: ACETAMINOPHEN 325 MG TABLET 650 MG PO (15:08)
[2025-02-02] VITALS: BP 120/73; PULSE 95; RESP 16; TEMP 37; O2SAT 97
[2025-02-02 04:00] VITALS: BP 119/72; PULSE 85; RESP 16; TEMP 36.8; O2SAT 96
[2025-02-02 06:18] LABS: Basophils # (Auto) 0.0 Thou/mm3 (0.0-0.2); Basophils % (Auto) 0 % (0-2.5); Eosinophils # (Auto) 0.1 Thou/mm3 (0.0-0.5); Eosinophils % (Auto) 1 % (0-10); Hematocrit 27.2 % (36.0-46.0); Hemoglobin 9.0 g/dL (12.0-16.0); Immature Granulocytes Auto 0.19 Thou/mm3 (0.00-0.00); Lymphocytes # (Auto) 2.2 Thou/mm3 (1.0-4.8); Lymphocytes % (Auto) 16 % (10-50); Mean Corpuscular HGB Conc 33.1 g/dl (31.0-37.0); Mean Corpuscular Hemoglobin 29.5 pg (25.0-35.0); Mean Corpuscular Volume 89 fL (80-100); Monocytes # (Auto) 0.6 Thou/mm3 (0.0-0.8); Monocytes % (Auto) 5 % (0-12); Neutrophils # (Auto) 10.3 Thou/mm3 (1.8-7.7); Neutrophils % (Auto) 76 % (37-80); Nucleated Red Blood Cell # 0.00 Thou/mm3 (0.00-0.00); Nucleated Red Blood Cell % 0 /100 WBC (0); Platelet Count 162 Thou/mm3 (140-440); RDW Standard Deviation 44.5 fL (36.4-46.3); Red Blood Count 3.05 Miln/mm3 (4.00-5.20); White Blood Count 13.5 Thou/mm3 (3.6-11.0)
[2025-02-02] MEDS: IBUPROFEN TAB 400 MG TABLET 800 MG PO (07:17)
[2025-02-02 07:30] VITALS: BP 120/71; PULSE 90; RESP 18; TEMP 36.9; O2SAT 97
--- NOTE | 2025-02-02 10:15 | CHAP ---
Patient was visited by the Spiritual Care Volunteer who gave [place] for her . (Volunteer was on he floor from c 9:30-10:15)
--- NOTE | 2025-02-02 10:20 | PC.NURSE ---
Patient cleared by Gabe in social work professor
--- NOTE | 2025-02-02 11:45 | PC.SS ---
HEALTH INFORMATION MANAGER conducted bedside contact with the patient to address nursing referral indicating patient possessed history of anxiety.? HEALTH INFORMATION MANAGER introduced self and role.? At bedside with patient was DEMIAN, Dixon Ortega.? Patient gave permission for FOB to be present during discussion.? Patient confirmed past history of anxiety.? Patient shared possessing low level of anxiety.? Per patient, level of anxiety has not impaired daily functioning.? Patient is not prescribed medication to address anxiety.? Patient denies history of mental health.? Patient denies history of self-harm behaviors or psychiatric placement.? Patient?s spouse confirmed that patient?s level of anxiety is not impacting daily functioning in an adverse manner.? HEALTH INFORMATION MANAGER reviewed with patient post- depression.? Patient confirmed nursing staff provided education to the patient regarding post- depression.? 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 , Melany; is the patient?s second child.? Infant delivered naturally.? Patient interacting appropriate with infant.? OB services provided by Dr. Peacock.? Patient reports compliance with OB appointments.? Patient plans on combo feeding the . ?Patient is receiving WIC. ?Patient is not aligned with SNAP or TANF.? Patient denies history of alcohol/drug use.? Patient denies episodes of domestic violence.? Patient denies history of CWS intervention.? Patient has access to appropriate supplies and equipment.? FOB will provide transportation upon discharge.? Patient describes possessing support system consisting of spouse and extended family.? HEALTH INFORMATION MANAGER provided community resources to include Warm Line and Parenting Network.? No further intervention required at this time, social insurance analyst will be available to address any further concerns.? HEALTH INFORMATION MANAGER updated bedside nurse.?
--- NOTE | 2025-02-02 12:27 | PD.LDDS ---
DS: Providers Provider Date of admission: 01/31/25 20:55 Primary care physician: Physician No Primary/Family Admitting Provider: Joe Oh MD Attending Provider on Admission: Joe Oh MD Consults: 02/01/25 06:03 Referral Routine Comment: Attending Provider on DC: Marjorie Justin MD Discharging Provider: Marjorie Justin MD DS: Diagnosis Discharge Diagnosis (1) LGA (large for gestational age) fetus: Status: Acute (2) Rh negative status during : Status: Acute (3) state: Status: Acute (4) Vaginal delivery: Status: Acute Problem List Completed Was Problem List Reviewed/Reconciled?: Yes Summary/Hosp Course Brief History: 30-year-old -0-1-1 at 39 weeks and 1 day estimated due date 02/06/2025 who received care at the [facility] JD EDWARDS DEVELOPER clinic presented to labor and delivery triage with contractions. On exam she was noted to be 4 cm dilated. Prior to that patient was sent in from the office yesterday due to concerns with elevated blood pressures send of preeclampsia evaluation was done and was negative. Patient has a history of being induced at 37 weeks due to preeclampsia in her prior . She has Rh- blood type/ she had a with a MLE on 02/01/2025 Peripartum Data Delivery Method: Normal Vaginal Delivery Episiotomy Description: Right Mediolateral complications: none Status at Discharge Functional status at discharge: independent ambulation Overall status at discharge: patient is progressing back to baseline Time Spent with Patient Time attestation: Total time spent providing and/or coordinating discharge services: Time spent: Less than 30 minutes Exam Vital Signs Temp Pulse Resp BP Pulse Ox O2 Del Method 98.4 F 90 18 120/71 97 Room Air 02/02/25 07:30 02/02/25 07:30 02/02/25 07:30 02/02/25 07:30 02/02/25 07:30 02/02/25 07:30 Narrative Exam alert x3 chest clear CVS RRR NO THYROMEGALY Uterus is nontender Uterus is firm Just below the umbilicus Bowel sounds present Abdomen soft no hernias noted/no CVAT No calf tenderness Edema Additional findings Additional findings: Patient has no complaints Headache no Blurry vision no Chest pain no Palpitations no Shortness of breath Nausea or vomiting or constipation no Back pain no Dysuria no Dizziness no calf pain no She is voiding spontaneously Passing flatus Lochia minimal/normal Discharge Plan Plan Patient Disposition: HOME (Self Care) Prescriptions/Referrals Prescriptions/Med Rec: No Action 176-aprj-bburz acid 29 mg iron- 1 mg tablet,chewable 1 tab PO QDAY Referrals: No Primary/Family,Physician [Primary Care Provider] Patient/Caregiver Discharge Instructions Discharge Activity: activity as tolerated Other Discharge Activity Instructions:: pelvic rest x 6 weeks / follow up in 1 week for BP check Other Discharge Diet Instructions: she will take OTC Tylenol/ motrin and follow up in 1 week at clinic for bp check and 4 weeks for check Education Materials: After a Vaginal Print Language: Anguill[place] Stand Alone Forms: Vivi Award Info., Patient Portal Info Letter Planned Discharge Date 02/02/25 (2) Rh negative status during Qualifiers: Trimester: third trimester Qualified Code(s): O26.893 - Other specified related conditions, third trimester; Z67.91 - Unspecified blood type, Rh negative
== END 2025-02-02 13:59 | disposition home or self-care (01) | DRG 807 ==
LOC: S4SX 21:29 → S4NX 02-01 08:06
PROVIDERS: Admitting Provider Obstetrics & Gynecology; Visit Provider Obstetrics & Gynecology
DX: O36.63X0 Maternal care for excessive fetal growth, third trimester, not applicable or unspecified (principal); Z37.0 Single live birth; O26.893 Other specified pregnancy related conditions, third trimester; Z3A.39 39 weeks gestation of pregnancy; Z67.41 Type O blood, Rh negative
CPT/HCPCS: 36415; 59025; 59409; 84112; 85025; 86780; 86850; 86900; 86901; 94762; J2590; J2795; J3010; J3490; J7120; A9270

== ENCOUNTER 2025-02-10 09:37 | Outpatient (AMB) | payer BC, MEDICAID, SELFPAY ==
[2025-02-10 09:49] VITALS: BP 130/82; PULSE 80; RESP 18; TEMP 36.2; O2SAT 97
--- NOTE | 2025-02-10 09:49 | AMBOBPPN_ITS ---
Vital Signs 02/10/25 09:49 Weight 109.429 kg Weight Measurement Method Standing Scale BP 130/82 Blood Pressure Source Automatic Cuff Blood Pressure Location Left Upper Arm Position Sitting Respiration 18 Pulse 80 Pulse Source Monitor Temp 97.2 F Temp Source Oral Pulse Oximetry (%) 97 Oxygen Delivery Method Room Air Allergies/Home Meds Allergies & Medications Allergies No Known Allergies Allergy (Verified 02/10/25 09:50) Medication Reconciliation vitamins no.115-iron 29 mg-folic acid 1 mg chewable tablet 1 tab PO QDAY 12/25/24 [History Confirmed 02/10/25] Intake Visit Data Collection New Patient or Established: Established Patient (seen at [facility] within 3 years) Reason for Visit:: BLOOD PRESSURE CHECK / Seen by Clinical Staff ONLY (RN/MA): No Community Assistant Required: No Do You Feel Safe at Home: Yes Authorities Contacted: N/A PCP or OBGYN visit in last 3 months: Yes Date of Last PCP or OBGYN visit: 02/02/25 Hx Now: Yes Are you currently on any form of Control: No Pain Present Currently: No Pain Scale Used: Hahn-Magana/Numerical Pain scale:: 0 Smoking Status Smoking Status: Never smoker Immunizations Flu Vaccine in the Last 12 Months: No Flu Vaccine Exclusion Criteria: No Exclusion Criteria SAFETY AND OCCUPATIONAL HEALTH MANAGER: Past Medical History Past Medical History: Yes Hx Neurological Disorders, No Hx Hypothyroidism, No Hx Hyperthyroidism, Yes Hx Cardiac Disorders, Yes Hx Hypertension (during only), No Hx Cancer, No Hx Blood Disorders, No Hx Anemia, Yes Hx Gastrointestinal Disorders, No Hx Renal Disease, No Hx Diabetes Mellitus Type 1, No Hx Diabetes Mellitus Type 2 and No Hx Polycystic Ovarian Syndrome Questionnaires Covid-19 Vaccine Questionnaire Has patient been vacinated for Covid-19 Have you been vacinated for Covid-19: No Social History Living Situation History Marital Status: Lives With: Family Housing: House Housing Other:: Works at [employer]. Spouse is a furnace repair mechanic. Tobacco History Smoking Status: Never smoker Second Hand Smoke Exposure: No Alcohol History Alcohol Intake: Never Domestic Abuse History Do You Feel Safe at Home: Yes EPDS - PP Depression Screening [place] Pospartum Depression Screen I have been able to laugh and see the funny side of things: (0) As much as I always could I have looked forward with enjoyment to things: (0) As much as I ever did I have blamed myself unnecessarily when things went wrong: (0) No, never I have been anxious or worried for no good reason: (0) No, not at all I have felt scared or panicky for no very good reason: (0) No, not at all Things have been getting on top of me: (0) No, I have been coping as well as ever I have been so unhappy that I have had difficulty sleeping: (0) No, not at all I have felt sad or miserable: (0) No, not at all I have been so unhappy that I have been crying: (0) No, never The thought of harming myself has occurred to me: (0) Never Total Score: EPDS Score: Referral is indicated for score of 9 or more, suicidal, or if provider believes patient is depressed regardless of score.: 0 EPDS completed yes Care OB Visit Log OB Flowsheet Initial Weight: 97 kg Date -?-?-?-?-?-?-?-?-?-?-?-?- EGA Weight BP Alb Glu CTX Pres Fundal ht FHR Mov Dilation Station Effacement Hx Notes Visit Note 07/01/24 -?-?-?-?-?-?-?-?-?-?-?-?- 8w 4d 95.254 kg (-1745.603 g) 135/76 135 08/06/24 -?-?-?-?-?-?-?-?-?-?-?-?- 13w 5d 97.125 kg (+125.466 g) 132/78 14 147 Labs reviewed all questions answered. Urine dip glucose negative protein trace. Patient declines NIPT. She feels a little tired and has some round ligament pain but otherwise no complaints. No bleeding no contractions no loss of fluids. 08/27/24 -?-?-?-?-?-?-?-?-?-?-?-?- 16w 5d 100.868 kg (+3867.603 g) 138/81 16 154 active declined NIPT 09/03/24 -?-?-?-?-?-?-?-?-?-?-?-?- 17w 5d 102.739 kg (+5738.671 g) 139/76 137 active Had structural survey ultrasound today. Trying to work overtime. Discussed need for 8 hours of sleep. CBC thyroid B12 all normal. Patient reports good movement no contractions no loss of fluids no 09/24/24 -?-?-?-?-?-?-?-?-?-?-?-?- 20w 5d 105.404 kg (+8403.527 g) 128/82 21 135 active +FM No UC No LOF 10/13/24 -?-?-?-?-?-?-?-?-?-?-?-?- 23w 3d 106.594 kg (+9594.206 g) 120/81 24 143 active +FM, No VB or UCs Spouse and 3 y/o d aughter present today 10/31/24 -?-?-?-?-?-?-?-?-?-?-?-?- 26w 0d 109.826 kg (+12.826 kg) 135/83 27 134 active Positive movement no vaginal bleeding or contractions Patient still has bilateral carpal tunnel 11/20/24 -?-?-?-?-?-?-?-?-?-?-?-?- 28w 6d 111.13 kg (+14.13 kg) 126/83 absent unknown 28 145 activ e + FM, denies LOF,VB.UC. here for Rhogam. several concern today. c/o mucous vag discharge, no c/o itching or burning. patient also c/o headache, sees stars sometime and back ache + FM, denies LOF,VB.UC. here for Rhogam. several concern today. c/o mucous vag discharge, no c/o itching or burning. patient also c/o headache, sees stars sometime and back ache. No bleeding.small leukorrhea New swab plus today. I advised patient to continue with Tylenol as she was urged to her last visit. Also patient encouraged to increase fluids. Increase proteins and small frequent meals. With c/o talked about comfort measures for back pain and the use of maternity girdle. Also discussed use salon pass or getting massages. RhoGAM was given today. Patient is to keep her appointment with her OB next visit 12/01/24 -?-?-?-?-?-?-?-?-?-?-?-?- 30w 3d 112.661 kg (+15.661 kg) 133/86 occasional unknown 31 145 active Good movement no contractions no loss of fluids Eze mccullough has severe carpal tunnel and she states her blood pressure has been elevated at home with headaches. History of preeclampsia last . Off work on modified bedrest. 12/22/24 -?-?-?-?-?-?-?-?-?-?-?-?- 33w 3d 114.419 kg (+17.419 kg) 124/87 occasional cephalic 36 145 active Good movement no contractions no loss of fluid Off work due to carpal tunnel. Ultrasound size greater than dates 01/05/25 -?-?-?-?-?-?-?-?-?-?-?-?- 35w 3d 114.929 kg (+17.929 kg) 128/82 occasional cephalic 34 143 active 1 -2 80 Good movement no contractions no loss of fluids Patient pushed a long time and got a vacuum for a 6 pound 8 ounce baby last delivery. Has an ultrasound scheduled January 15 for size. 01/12/25 -?-?-?-?-?-?-?-?-?-?-?-?- 36w 3d 115.383 kg (+18.383 kg) 128/82 occasional cephalic 36 156 active Good movement no contractions no loss of fluid Rashard diaz has cramps and occasional pressure 01/19/25 -?-?-?-?-?-?-?-?-?-?-?-?- 37w 3d 116.233 kg (+19.233 kg) 132/86 occasional cephalic 36 145 active 1 -2 70 The patient reports good movement. Occasional contractions no loss of fluids. Had an ultrasound revealing vertex presentation 2949 g which is about 6 pounds 5 ounces SUMMER at 9.8. 8 pound baby at her due date. Last baby was 6 pounds 11 ounces born via vacuum secondary to prolonged pushing. 01/30/25 -?-?-?-?-?-?-?-?-?-?-?-?- 39w 0d 117.934 kg (+20.934 kg) 136/83 occasional cephalic 38 145 active 2 -2 70 Good FM, No UCs or VB Kick counts, lab or precautions MARIBEL Calculator Estimated Delivery Date Method Current WG Current Estimate 02/06/25 Ultrasound #1 40w 4d Other Estimates 02/08/25 LMP (Certain) 40w 2d Expected Delivery Route/Plan PNC Labs: O-/Ab screen -/ RPR NR/RI/HepBSag-/HIV-/ Urine CX-/1 hour glucose 112 DECLINED NIPT Anticipate . Patient desires epidural. Specific Issue/Plans Vacuum-assisted vaginal delivery last delivery. O- blood type. Had rhogam at 28 weeks Notes Visit Date: 01/30/25 Last Updated by: Darby Peacock (OB Clinic)MD Consider IOL by due date due to hx VAVD after a long second stage Visit Date: 01/19/25 Last Updated by: Darby Peacock ([facility] Clinic)MD Group Bhandari strep negative. Labor precautions. Kick counts. Follow-up 1 week. Visit Date: 01/12/25 Last Updated by: Darby Peacock (OB Clinic)MD Group Bhandari strep negative. Labor precautions. Kick counts. Will check the patient's cervix in 1 week. Visit Date: 01/05/25 Last Updated by: Darby Peacock (OB Clinic)MD Group Bahndari strep done. Adequate pelvic opening. Suspect patient was too numb last time with pushing . Per patient, she had a very dense epidural. Visit Date: 12/22/24 Last Updated by: Darby Peacock (OB Clinic)MD Schedule ultrasound size greater than dates Pt with VAVD Dr Del Castillo in the past pushed a long time Visit Date: 12/01/24 Last Updated by: Darby Peacock (OB Clinic)MD Note given for off work of 31 weeks secondary to headaches swelling and history of preeclampsia. Patient on modified bedrest and will check her blood pressures. Ultrasound from [place] [facility] obtained from 09/03/2024 baby was 17-5/7-week with an EDC of 02/06/2025 with a normal structural survey and an anterior fundal placenta with no previa. Visit Date: 10/31/24 Last Updated by: Darby Peacock (OB Clinic)MD Order CBC glucose challenge test RPR. No ultrasound from structural survey on chart. Done at [facility]. Visit Date: 10/13/24 Last Updated by: Darby Peacock (OB Clinic)MD The patient is crying and quite upset today. She had a panic attack on 10/11/2024 at work. 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 Patient states she is overwhelmed at work. She does not understand why she keeps crying. She states she usually can handle a lot more than this. She is also reporting some right sided carpal tunnel. After her first delivery in [address] Del Castillo she did suffer from with the baby blues but was not on any medication. She states she has not had panic attacks since college. She has never been on antidepressants. She is amendable to trying Lexapro and counseling. We did discuss the fact that one of her colleagues is going to be off soon on maternity leave and the patient is worried that they will increase h er caseload. 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 We can try to send her to physical therapy for her carpal tunnel. If counseling and medication do not work we might consider taking the patient off early on disability. Visit Date: 08/27/24 Last Updated by: Darby Peacock (OB Clinic)MD Pt is very tired. Ordered CBC, B12, TSH. 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 Visit Date: 08/06/24 Last Updated by: Darby Peacock (OB Clinic)MD Patient declines NIPT. She had a vacuum delivery with her daughter with Dr. Del Castillo. She had an epidural. She states she pushed a long time. The baby was in the 6 pound range. HPI Interval History: Lupe Yang is a 30-year-old female who delivered on February 01, 2025 and presents 9 days for a blood pressure check as instructed. She reports that both she and her baby are doing well, and she is successfully . She has an obstetric history of G1 T1 L1 with recent delivery on February 01, 2025. The patient is currently and reports that her baby is doing well. ROS: Negative except as stated above, limited to SAFETY AND OCCUPATIONAL HEALTH MANAGER and pertinent complaints. Exam General General Appearance: alert, in no apparent distress and healthy appearing Head Head exam: atraumatic Neck Neck exam: Present normal inspection and trachea midline Chest Chest inspection: Present normal inspection and symmetric chest wall rise External exam: Present normal external exam; Absent tenderness Neuro Neurological exam: Present oriented X3 Psych Psychiatric exam: Present normal affect and normal mood Office Procedures OBC Clinic LOC & Office Proc's Nursing/Assessment Patient Status: Established Patient OB Clinic Nursing Assessment: Medication Reconciliation, Update PMH in EMR and Vital Signs OB Clinic Coordination of Care: Consent,records obtained, informed consent, Education Simp Pt/Fam, Lab and Imaging orders, Results/Orders obtained and Staff clarify orders Established Patient Charge Established Patient Point Assignment: 80 Established Patient Point Charge: EP Level 3 (80-115) Assessment & Plan Diagnosis / Problem List (1) Vaginal delivery: Status: Acute (2) state: Status: Acute Plan Blood Pressure Monitoring: - Patient is 9 days following delivery on 02-01-2025. - Blood pressure today is 130/82 mmHg, which is within acceptable range and not concerning. - Patient and baby are doing well with successful established. Plan: - Follow-up appointment scheduled in 3 weeks for routine visit (approximately 1 month ). - Discuss control options at next visit.
== END 2025-02-10 10:06 | disposition home or self-care (01) ==
LOC: HODSOBC 09:37
PROVIDERS: Supervising Provider Obstetrics & Gynecology; Visit Provider Obstetrics & Gynecology
DX: Z01.30 Encounter for examination of blood pressure without abnormal findings (principal); Z87.59 Personal history of other complications of pregnancy, childbirth and the puerperium
CPT/HCPCS: 99213; G0463

== ENCOUNTER 2025-03-06 09:56 | Outpatient (AMB) | payer BC, MEDICAID, SELFPAY ==
[2025-03-06 10:09] VITALS: BP 128/84; PULSE 63; RESP 14; TEMP 36.7; O2SAT 97; BMI 36.8
--- NOTE | 2025-03-06 10:09 | AMBOBPPN_ITS ---
Vital Signs 03/06/25 10:09 Height 1.7 m Height Method Stated Weight 106.821 kg Weight Measurement Method Standing Scale BMI 36.8 BP 128/84 Blood Pressure Source Automatic Cuff Blood Pressure Location Left Upper Arm Position Sitting Respiration 14 Pulse 63 Pulse Source Monitor Temp 98.1 F Temp Source Oral Pulse Oximetry (%) 97 Oxygen Delivery Method Room Air Allergies/Home Meds Allergies & Medications Allergies No Known Allergies Allergy (Verified 03/06/25 10:10) Medication Reconciliation vitamins no.115-iron 29 mg-folic acid 1 mg chewable tablet 1 tab PO QDAY 12/25/24 [History Confirmed 03/06/25] bupropion HCl 150 mg 24 hr tablet, extended release (Wellbutrin XL) 150 mg PO QAM 30 days #30 tabs 03/06/25 [Rx] Intake Visit Data Collection New Patient or Established: Established Patient (seen at [facility] within 3 years) Reason for Visit:: Seen by Clinical Staff ONLY (RN/MA): No 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: No Do You Feel Safe at Home: Yes Authorities Contacted: N/A PCP or OBGYN visit in last 3 months: Yes Hx Now: No Are you currently on any form of Control: No Pain Present Currently: No Pain Scale Used: Hahn-Magana/Numerical Pain scale:: 0 Smoking Status Smoking Status: Never smoker Immunizations Flu Vaccine in the Last 12 Months: Yes Date of most recent flu vaccination: 03/06/25 Flu Vaccine Exclusion Criteria: Already 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: Past Medical History Past Medical History: Yes Hx Neurological Disorders, No Hx Hypothyroidism, No Hx Hyperthyroidism, Yes Hx Cardiac Disorders, Yes Hx Hypertension (during only), No Hx Cancer, No Hx Blood Disorders, No Hx Anemia, Yes Hx G astrointestinal Disorders, No Hx Renal Disease, No Hx Diabetes Mellitus Type 1, No Hx Diabetes Mellitus Type 2 and No Hx Polycystic Ovarian Syndrome Questionnaires Covid-19 Vaccine Questionnaire Has patient been vacinated for Covid-19 Have you been vacinated for Covid-19: Yes Social History Living Situation History Lives With: Family Housing: House Housing Other:: Works at [employer]. Spouse is a mechanical estimator. Tobacco History Smoking Status: Never smoker Second Hand Smoke Exposure: No Alcohol History Alcohol Intake: Never Domestic Abuse History Do You Feel Safe at Home: Yes EPDS - PP Depression Screening [place] Pospartum Depression Screen I have been able to laugh and see the funny side of things: (2) Definitely not so much now I have looked forward with enjoyment to things: (3) Hardly at all I have blamed myself unnecessarily when things went wrong: (2) Yes, some of the time I have been anxious or worried for no good reason: (3) Yes, very often I have felt scared or panicky for no very good reason: (3) Yes, quite a lot Things have been getting on top of me: (2) Yes, sometimes I haven't been coping as well as usual I have been so unhappy that I have had difficulty sleeping: (3) Yes, most of the time I have felt sad or miserable: (3) Yes, most of the time I have been so unhappy that I have been crying: (2) Yes, quite often The thought of harming myself has occurred to me: (0) Never EPDS completed yes Office Procedures [facility] LOC & Office Proc's Nursing/Assessment Patient Status: Established Patient [facility] Clinic Nursing Assessment: Medication Reconciliation, Update PMH in EMR and Vital Signs OB Clinic Coordination of Care: Complex Care and Chronic Disease 1-5, Consent,records obtained, informed consent, Education Simp Pt/Fam, 1 Ins Authorization, Lab and Imaging orders, Results/Orders obtained and Staff clarify orders Established Patient Charge Established Patient Point Assignment: 120 Established Patient Point Charge: EP Level 4 (120-155) Injection/Vaccine Admin SQ Im Injection: Yes Immunizations flu vac ts (6mos up)-PF 45 mcg(15mcg x3)/0.5 mL IM syringe Performing Provider: Joe Oh MD Performing Location: [facility] Administered by: Olga Dumont MA on 03/06/25 12:07 Dose Route Admin Location Dispensed Lot Number Expiration Date Pack age [facility] 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
== END 2025-03-06 10:25 | disposition home or self-care (01) ==
LOC: HODSOBC 09:56
PROVIDERS: Supervising Provider Obstetrics & Gynecology; Visit Provider Obstetrics & Gynecology
DX: O99.345 Other mental disorders complicating the puerperium (principal); F53.0 Postpartum depression; Z23 Encounter for immunization
CPT/HCPCS: 90471; 90686; 96372; 99214; G0463; J9060